=== PATIENT | female | born 1970 | race Caucasian/White ===

== ENCOUNTER → 2017-11-02 15:40 | Outpatient (CLI) | payer MEDICAID, SELFPAY ==
--- NOTE | 2017-11-02 15:47 | MM_ITS ---
. MM Dig screening mamm BI w/CAD . ORDERING PHYSICIAN : [facility] PATIENT AGE: 46 years GENDER: Female INDICATION: No new complaints. No hormones. Noncontributory family history COMPARISON: No previous study. Baseline mammogram. TECHNIQUE: Standard CC and MLO images were obtained. R2 CAD reviewed. FINDINGS: Moderately dense breast laterally fairly diffuse scattered fibrolinear elements RIGHT BREAST:No areas of significant concern. Areas of cc view dissipates on MLO view. Follow-up in one year adequate on right. No new areas of concern LEFT BREAST:There are 2 MLO views of the left breast which are quite helpful. On the repeat MLO view the density superior left breast seems to dissipate out & is less concerning. Nonetheless this a noted asymmetry and is is highlighted by CAD... This area would benefit from additional views:. Suggest Cc, 90 degrees and MLO spot views to further evaluate.. If density here would persist then ultrasound may be beneficial. I tend to Favor this likely summation shadow and should dissipate on these additional views IMPRESSION: ...... Left breast. Asymmetric area of density-most likely summation shadow on this baseline mammogram, but warrants spot views to further evaluate & better establish baseline. . Right breast is stable: follow-up mammogram 1 year on right BI-RADS Category: 0 Need Additional Imaging Evaluaiton. RECOMMENDED FOLLOW-UP: IMM - IMMEDIATE FOLLOW-UP RECOMMENDED Spot views left breast as above (A letter has been sent to the patient regarding results of the study.)
== END ==
PROVIDERS: Family Provider Family Medicine; PCP Family Medicine; Visit Provider Nurse Practitioner Obstetrics & Gynecology
DX: Z12.31 Encounter for screening mammogram for malignant neoplasm of breast (principal)
CPT/HCPCS: 77067

== ENCOUNTER → 2017-11-19 14:59 | Outpatient (CLI) | payer MEDICAID, SELFPAY ==
--- NOTE | 2017-11-19 15:03 | MM_ITS ---
MM Dig mamm DX unilat LT CAD CAD Screening ORDERING PHYSICIAN : [facility] PATIENT AGE: 46 years GENDER: Female COMPARISON: Previous mammograms: 20 INDICATION: Asymmetric densities upper quadrant left breast. Also minimal nodularity elsewhere left breast TECHNIQUE: Standard CC and MLO images were obtained. R2 CAD reviewed. FINDINGS:LEFT BREAST: No prominent findings . Suggestion minimal nodularity. Central left breast on cc view. Likely underlying small cyst. Subsequent Ultrasound support such as well. Another area of relative density upper-outer quadrant left breast was seen on one view but it dissipates on the other.. Subsequent Ultrasound showed no mass nor architectural distortion here. A suggest 6-7 month follow-up with attention upper-outer quadrant left breast ==== ULTRASOUND LEFT BREAST including AXILLARY SURVEY Scattered small cysts. No dominant mass nor architectural distortion is seen at the upper outer quadrant left breast .. Axial unremarkable. A few small Axillary lymph nodes. IMPRESSION: . 1. Left breast Spot views decreased concern regarding significant density. 2. Left breast Ultrasound demonstrates scattered small cyst which likely account for some minimal nodularity on recent mammograms. Suggest follow-up left mammogram 6-7 months to support stable baseline character. BI-RADS Category: 3 Benign Finding Short Term Follow-up RECOMMENDED FOLLOW-UP: 6M -7 MONTH FOLLOW-UP (A letter has been sent to the patient regarding results of the study.) .
--- NOTE | 2017-11-19 15:46 | US_ITS ---
MM Dig mamm DX unilat LT CAD CAD Screening ORDERING PHYSICIAN : [facility] PATIENT AGE: 46 years GENDER: Female COMPARISON: Previous mammograms: 11/02/2017 INDICATION: Asymmetric densities upper quadrant left breast. Also minimal nodularity elsewhere left breast TECHNIQUE: 1 Standard CC and MLO images were obtained. R2 CAD reviewed. 2. Ultrasound survey entire left breast including axillary survey ========= . DIAGNOSTIC: LEFT BREAST: WITH SPOT VIEWS No prominent findings. Suggestion minimal nodularity at Central left breast on cc view. Likely underlying small cyst. Subsequent Ultrasound support such as well. Another area of relative density upper-outer quadrant left breast was seen on one view but it dissipates on the other.. Subsequent Ultrasound showed no mass nor architectural distortion here. A suggest 6-7 month follow-up with attention upper-outer quadrant left breast ==== ULTRASOUND LEFT BREAST including AXILLARY SURVEY Scattered small cysts. No dominant mass nor architectural distortion is seen at the upper outer quadrant left breast .. Axial unremarkable. A few small Axillary lymph nodes. IMPRESSION: . 1. Left breast Spot views decreased concern regarding significant density. 2. Left breast Ultrasound demonstrates scattered small cyst which likely account for some minimal nodularity on recent mammograms. Suggest follow-up left mammogram 6-7 months to support stable baseline character. BI-RADS Category: 3 Benign Finding Short Term Follow-up RECOMMENDED FOLLOW-UP: 6M -7 MONTH FOLLOW-UP (A letter has been sent to the patient regarding results of the study.)
== END ==
PROVIDERS: Family Provider Family Medicine; PCP Family Medicine; Visit Provider Nurse Practitioner Obstetrics & Gynecology
DX: R92.8 Other abnormal and inconclusive findings on diagnostic imaging of breast (principal)
CPT/HCPCS: 76641; 77065

== ENCOUNTER → 2018-05-19 14:10 | Outpatient (CLI) | payer MEDICAID, SELFPAY ==
--- NOTE | 2018-05-19 14:13 | MM_ITS ---
MM Dig mamm DX unilat LT CAD Ordering Physician: Brittany Jordan Patient Age: 47 years Female COMPARISON: October 2017 baseline exam as well as a left mammogram from November 2017 INDICATION: . Follow-up asymmetric density [ TECHNIQUE: Cc, axillary cc and two MLO views.+ FINDINGS: Areas of asymmetric density seen on previous on 2018 studies are less evident today.. No significant new findings. Areas of apparent fibroglandular density seen previously remain stable. No new areas of significant concern Specifically an area of density superior left breast is significantly less evident today and dissipates on the combination of views. No new areas of concern. Bilateral follow-up in 6 months/October 2018 recommended to resume annual scheduled. IMPRESSION: . Stable left mammogram. Stable 6 month follow-up study Left breast Patient may resume routine follow-up protocol. BI-RADS Category: 1 Negative RECOMMENDED FOLLOW-UP: 6M 6 MONTH FOLLOW-UP May Resuming her annual screening schedule A letter has been sent to the patient regarding results of the study.)
== END ==
PROVIDERS: PCP Family Medicine; Visit Provider Nurse Practitioner Family
DX: R92.8 Other abnormal and inconclusive findings on diagnostic imaging of breast (principal)
CPT/HCPCS: 77065

== ENCOUNTER → 2019-01-25 16:36 | Outpatient (CLI) | payer MEDICAID, SELFPAY ==
--- NOTE | 2019-01-25 | MM_ITS ---
PROCEDURE: MM DIG SCREENING MAMM BI W/CAD CLINICAL INDICATION: Routine screening mammogram. No hormones. No new complaints. Noncontributory family history. COMPARISON: [facility] MM Dig screening mamm BI w/CAD from 11/02/2017 DXLT MM Dig mamm DX unilat LT CAD from 11/19/2017 DXLT MM Dig mamm DX unilat LT CAD from 05/19/2018 TECHNIQUE: Standard CC and MLO images were obtained. R2 CAD reviewed. FINDINGS: . [id number] residual fibroglandular elements in both breasts. No dominant or suspicious mass. No suspicious calcifications either breast. There has been overall slight decreased density of the fibroglandular elements both breast since even 2018 mammogram Right breast.: No significant new findings Left breast. Previous area of density superior left breast is less evident today than october 2017 exam IMPRESSION: Stable mammogram. No new areas of significant concern Bilateral follow-up 1 year recommended BI-RAD Category: 1 Negative FOLLOW-UP: 1YR 1 Year Follow-up (A letter has been sent to the patient regarding results of the study.) Dictated by: Duarte Harrison MD 01/30/2019 12:13 Signed by: <Electronically signed by Duarte Harrison MD in [place]> 01/30/2019 12:14
== END ==
PROVIDERS: PCP Family Medicine; Visit Provider Nurse Practitioner Obstetrics & Gynecology
DX: Z12.31 Encounter for screening mammogram for malignant neoplasm of breast (principal)
CPT/HCPCS: 77067

== ENCOUNTER 2019-09-21 09:01 | Emergency (ER) | payer OTHER, SELFPAY ==
--- NOTE | 2019-09-21 09:18 | HMH.EDUTC ---
[facility] [place] Clinical Impression: UTI (urinary tract infection) Qualifiers: Urinary tract infection type: site unspecified Hematuria presence: with hematuria Qualified Code(s): N39.0 - Urinary tract infection, site not specified Disposition: Home, Self-Care Condition on Discharge: Good Instructions: Urinary Tract Infection, DI for Urinary Tract Infection (UTI) Additional Instructions: Drink plenty of fluids. Take tylenol or ibuprofen for pain or fever. Take the medications as directed. Follow up with your regular doctor. GO TO THE ER FOR ANY WORSENING SYMPTOMS The pyridium will make your urine turn orange, this is an expected side effect. It will stain your clothes if it comes into contact with them. Prescriptions: Ondansetron [Zofran 4mg ODT] 4 mg PO Q8HP PRN #10 tab.rapdis PRN Reason: Nausea Transmission Status: Received by [id number] Sulfamethoxazole/Trimethoprim [Bactrim DS tablet] 1 each PO BID 7 Days #14 tab Transmission Status: Received by [id number] Phenazopyridine HCl [Pyridium 200mg Tablet] 200 pow PO TID #6 tab Transmission Status: Received by [id number] Referrals: Tom Evans MD [Primary Care Provider] - Forms: Work/School Release Time of Disposition: 09:31 Medical Decision Making - Medical Records Medical records reviewed: No: I reviewed the patient's medical records. - Graham Inquiry Pt receiving controlled substance: No Vital Signs: 09/21/19 09:20 09/21/19 09:39 Temperature 98.5 F 98.5 F Temperature Source Oral Oral Pulse Rate 90 Pulse Rate [Right Brachial] 90 Respiratory Rate 20 20 Blood Pressure 123/91 H Blood Pressure [Right Arm] 123/91 H Blood Pressure Mean [Right Arm] 101 Blood Pressure Source Automatic Cuff Blood Pressure Source [Right Arm] Automatic Cuff Blood Pressure Position Sitting Blood Pressure Position [Right Arm] Sitting 02 Sat by Pulse Oximetry 100 Oxygen Delivery Method Room Air Room Air - Lab Data Lab results reviewed: Yes: I reviewed the patient's lab results. Lab Results 09/21/19 09:17: Urine Color Yellow, Urine Appearance Clear, Urine pH 6.0, Ur Specific [place] 1.020, Urine Protein Trace, Urine Glucose (UA) Negative, Urine Ketones Negative, Urine Blood 1+, Urine Nitrate Negative, Urine Bilirubin Negative, Urine Urobilinogen 0.2, Ur Leukocyte Esterase Negative Orders (Tests/Meds): ORDERS Category Date Time Status Urine Culture Stat Micro 09/21/19 09:30 Re[place] [facility] [place] - General Stated complaint: possible UTI Time Seen by Provider: 09/21/19 09:18 - History of Present Illness Provider Complaint: She c/o 3 days of lower abdominal pain, low back pain and burning while she urinates. She has also noted some blood in her urine at times. She thinks that she is getting a UTI. In the past she has had similar symptoms with a UTI. - Related Data Previous Rx's Medication Instructions Recorded Ondansetron [Zofran 4mg ODT] 4 mg PO Q8HP PRN #10 tab.rapdis 09/21/19 Phenazopyridine HCl [Pyridium 200 pow PO TID #6 tab 09/21/19 200mg Tablet] Sulfamethoxazole/Trimethoprim 1 each PO BID 7 Days #14 tab 09/21/19 [Bactrim DS tablet] Allergies Allergy/AdvReac Type Severity Reaction Status Date / Time No Known Allergies Allergy Verified 05/07/19 16:21 [facility] History - Hepatitis A Screen Attestation statement:: This patient has been screened for Hepatitis A risk factors. I have reviewed the patient's past medical history: Yes Other Surgeries: Yes: No Previous Surgery, , Tubal Ligation Amputation: No Fractures: No - Social History Smoking Status: Never smoker Alcohol Intake: never Occupational Status: employed Family Hx:: Cancer ROS Obtained: Yes All systems reviewed & no additional complaints - Constitutional Constitutional: Denies chills, Denies fever(s), Reports poor appetite, Reports malaise - Gastrointestinal Gastrointesting
[2019-09-21 09:20] VITALS: BP 123/91; PULSE 90; RESP 20; TEMP 36.9; O2SAT 100
[2019-09-21 09:25] LABS: Apearance,Urine Clear (Clear); Color,Urine Yellow (Yellow); Glucose,Urine (UA) Negative (Negative); Ketones,Urine Negative (Negative); Protein,Urine Trace (Negative)
[2019-09-21 09:26] LABS: Bilirubin,Urine Negative (Negative); Blood, Urine 1+ (Negative); UTC Leukocyte Esterase,Urine Negative (Negative); UTC Nitrate,Urine Negative (Negative); Urobilinogen,Urine 0.2 EU/dl (0.2)
[2019-09-21 09:39] VITALS: BP 123/91; PULSE 90; RESP 20; TEMP 36.9; O2SAT 100
== END 2019-09-21 09:41 | disposition home or self-care (01) ==
PROVIDERS: Emergency Provider Nurse Practitioner Family; PCP Family Medicine
DX: N30.00 Acute cystitis without hematuria (principal)
CPT/HCPCS: 81003; 87086; 99201

== ENCOUNTER → 2020-05-15 15:08 | Outpatient (CLI) | payer OTHER, SELFPAY ==
--- NOTE | 2020-05-15 15:08 | US_ITS ---
PROCEDURE: US TRANSVAGINAL CLINICAL INDICATION: Abnormal menses COMPARISON: No exams were available for comparison FINDINGS: UTERUS: 9cm x 5cmx 4cm with a combined endometrial thickness of 6.1mm LEFT OVARY: 7bde3phn4.6cm with a volume of 6.3ml. RIGHT OVARY: [id number] with a volume of 4.9ml. Heterogeneous appearance of the uterus suggesting adenomyosis. There is bilateral ovarian blood flow. There is a simple 2 cm cyst of the right ovary. No cul-de-sac fluid. IMPRESSION: Suspected adenomyosis of the uterus Dictated by: Javid Ponce MD 05/15/2020 19:26 Javid Ponce MD in [place] 05/15/2020 19:26
== END ==
PROVIDERS: PCP Family Medicine; Visit Provider Obstetrics & Gynecology
DX: N92.6 Irregular menstruation, unspecified (principal)
CPT/HCPCS: 76830

== ENCOUNTER 2020-07-18 15:00 | Outpatient (RCR) | payer OTHER, SELFPAY ==
--- NOTE | 2020-05-06 16:48 | HMH.PTOPEV ---
PT Outpatient Evaluation Rehab PT Outpatient Evaluation Start: 05/06/20 16:23 Freq: Status: Active Protocol: Document 05/06/20 16:24 NADER (Rec: 05/06/20 16:48 NADER [id number]) Electronically Signed By Jr Lau, PT 05/06/20 16:24 Outpatient Therapy Subjective History Subjective History Patient is a 49 year old female presenting to outpatient PT with reports of sub-acute L upper trap, ACJ and pec minor pain starting approximatley 2 months ago. No specific mechanism of injury to report. No recent imaging to report. No comorbidities to report. Chief Complaint Pain Symptom Type Ache,Dull Symptoms Relieved By Rest/Positioning Symptoms Aggravated By Physical Activity,Lifting Prior Functional Limitations None Current Functional Limitations Reaching,Lifting,Housework, Dressing,Driving,Sleeping, Recreation Activity Symptom Description Intermittent Level of pain today (0-10) 2 Pain scale - at its best (0-10) 0 Pain scale - at its worst (0-10) 6 Cervical Eval Palpation Cervical Muscles L Upper Trapezius Cervical/Thoracic Palpation Findings Tenderness Posture Head/C-Spine Posture Sitting Position Neutral Position Head/C-Spine Posture Standing Position Neutral Position Flexibility Deficits Upper Trapezius Muscle Length (L) Mild Tightness Levaetor Scapulae Muscle Length (L) Mild Tightness Pectoralis Minor Muscle Length (L) Mild Tightness Passive Joint Mobility Cervical PIVM WNL: R OA L OA R AA L AA R C2/3 L C2/3 R C3/4 L C3/4 R C4/5 L C4/5 R C5/6 L C5/6 R C6/7 L C6/7 R C7/T1 L C7/T1 AROM Cervical Spine Extension Active Range of 60 Motion (degrees) Cervical Spine Flexion Active Range of 55 Motion (degrees) Cervical Spine Right Lateral Flexion 38 Active Range of Motion (degrees) Cervical Spine Left Lateral Flexion 45 Active Range of Motion (degrees) Cervical S
== END 2020-07-18 15:05 | disposition home or self-care (01) ==
LOC: PT 15:00
PROVIDERS: PCP Family Medicine; Visit Provider Family Medicine
DX: M54.2 Cervicalgia (principal); M25.512 Pain in left shoulder
CPT/HCPCS: 20560; 20561; 97010; 97014; 97035; 97110; 97140; 97163; 97164; G0283

== ENCOUNTER 2020-09-07 13:22 | Inpatient (IN) | payer OTHER, SELFPAY ==
[2020-09-07] VITALS (9 sets, daily range): BP systolic 102–134; BP diastolic 58–92; PULSE 61–91; RESP 14–75; TEMP 36.8–38.8; O2SAT 95–100; BMI 20.9; BMI 21.8
[2020-09-07 14:08] LABS: Apearance,Urine Clear (Clear); Color,Urine Dark Yellow (Yellow); PH,Urine 5.5 (5.0-8.5)
[2020-09-07 14:09] LABS: Bilirubin,Urine Negative (Negative); Blood, Urine 2+ (Negative); Glucose,Urine (UA) Negative (Negative); Ketones,Urine 1+ (Negative); Protein,Urine 3+ (Negative); Urobilinogen,Urine 1 EU/dl (0.2)
[2020-09-07 14:10] LABS: UTC Leukocyte Esterase,Urine 1+ (Negative); UTC Nitrate,Urine Negative (Negative)
--- NOTE | 2020-09-07 14:20 | HMH.EDGENADL ---
ED Disposition Clinical Impression: Pyelonephritis Disposition: Admitted as Observation Condition on Discharge: Fair Referrals: Tom Evans MD [Primary Care Provider] - Time of Disposition: 17:35 - Critical Care Critical Care Time: No Attestation: On 09/07/20, the high probability of a clinically significant, sudden or life threatening deterioration of the following system(s) required my full and direct attention, intervention and personal management. The time I documented below is in addition to time spent performing reported procedures but includes the following listed in this critical care notation. Medical Decision Making - Graham Inquiry Pt receiving controlled substance: No Vital Signs: 09/07/20 13:50 09/07/20 14:30 09/07/20 15:19 Temperature 101.8 F H 101.1 F H 99.7 F H Temperature Source Oral Oral Oral Pulse Rate 71 Pulse Rate [Right] 91 H 84 Respiratory Rate 14 17 16 Blood Pressure 119/65 Blood Pressure [Right Arm] 116/68 127/67 Blood Pressure Mean 87 Blood Pressure Mean [Right Arm] 84 87 Blood Pressure Source [Right Arm] Automatic Cuff Automatic Cuff Blood Pressure Position [Right Arm] Sitting 02 Sat by Pulse Oximetry 100 99 97 Oxygen Delivery Method Room Air Room Air Room Air 09/07/20 15:30 09/07/20 16:01 09/07/20 16:30 Temperature 98.2 F Temperature Source Oral Pulse Rate 70 68 Pulse Rate [Right] Respiratory Rate 16 Blood Pressure 109/64 L 105/58 L 107/60 L Blood Pressure [Right Arm] Blood Pressure Mean 79 71 73 Blood Pressure Mean [Right Arm] Blood Pressure Source [Right Arm] Blood Pressure Position [Right Arm] 02 Sat by Pulse Oximetry 98 98 Oxygen Delivery Method Room Air Room Air - Lab Data Lab results reviewed: Yes: I reviewed the patient's lab results. Lab Results 09/07/20 13:50: Chlamy pneumoniae PCR Not detected, Adenovirus (PCR) Not detected, B. pertussis DNA (PCR) Not detected, Coronavirus OC43 (PCR) Not detected, Coronavirus HKU1 (PCR) Not detected, Coronavirus 229E (PCR) Not detected, SARS-CoV-2 (PCR) Not detected, Coronavirus NL63 (PCR) Not detected, Human Metapneumovir PCR Not detected, Influenza A (H1) PCR Not detected, Influ A (H1N1/09) PCR Not detected, Influenza A (H3) PCR Not detected, Influenza Type A (PCR) Not detected, Influenza Type B (PCR) Not detected, M. pneumoniae (PCR) Not detected, Parainfluenza 1 (PCR) Not detected, Parainfluenza 2 (PCR) Not detected, Parainfluenza 3 (PCR) Not detected, Parainfluenza 4 (PCR) Not detected, RSV (PCR) Not detected, Entero/Rhino (PCR) Not detected 09/07/20 14:00: Urine HCG, Qual Negative 09/07/20 14:04: Urine Color Dark yellow, Urine Appearance Clear, Urine pH 5.5, Ur Specific [place] 1.020, Urine Protein 3+, Urine Glucose (UA) Negative, Urine Ketones 1+, Urine Blood 2+, Urine Nitrate Negative, Urine Bilirubin Negative, Urine Urobilinogen 1, Ur Leukocyte Esterase 1+ A 09/07/20 14:45: WBC 15.6 H, RBC 3.79 L, Hgb 12.1 L, Hct 35.8 L, MCV 94.4, MCH 32.0 H, MCHC 33.9, RDW 13.2, Plt Count 310, MPV 7.5, Neut % (Auto) 89.0 H, Lymph % (Auto) 5.5 L, [place] % (Auto) 5.2, Eos % (Auto) 0.1, Baso % (Auto) 0.2, Neut # (Auto) 13.9 H, Lymph # (Auto) 0.9, [place] # (Auto) 0.8, Eos # (Auto) 0.0, Baso # (Auto) 0.0, Total Counted 100, Neutrophils % (Manual) 87 H, Lymphocytes % (Manual) 7 L, Monocytes % (Manual) 6, Platelet Estimate Normal, RBC Morphology Normal 09/07/20 14:45: Sodium 132 L, Potassium 3.4 L, Chloride 98, Carbon Dioxide 25, Anion Gap 12.4, BUN 10, Creatinine 0.80, Estimated Creat Clear 81, Estimated GFR 77, Est GFR ( Amer) 93, Glucose 103 H, Calcium 9.1, Total Bilirubin 0.6, AST 43 H, ALT 60, Alkaline Phosphatase 146 H, Total Protein 7.1, Albumin 3.8, Globulin 3.3 H, Albumin/Globulin Ratio 1.2 09/07/20 14:59: Lactate 1.1 Result diagrams: 09/07/20 14:45 09/07/20 14:45 Orders (Tests/Meds): ED MEDICATIONS Generic Name Dose Route Start Last Admin Trade Name Freq PRN Reason Stop Dose Admin Ceftriaxo
--- NOTE | 2020-09-07 14:23 | CT_ITS ---
PROCEDURE: CT ABDOMEN PELVIS W CON CLINICAL INDICATION: RLQ pain, fever COMPARISON: No exams were available for comparison TECHNIQUE: IV Contrast: 75ML OPTIRAY 350 Oral Contrast none given Axial images obtained with sagittal and coronal reformats. All CT scans at the facility use one or more dose reduction, viz: automated exposure control, ma/kV adjustment per patient size (including targeted exams where dose is matched to indication, i.e. head), or iterative reconstruction technique. FINDINGS: Lower thorax: There is minimal atelectasis or postinflammatory scarring left posterior gutter, there is no pleural fluid. There is a calcified granuloma posterior basilar segment right lower lobe. ABDOMEN: Liver: No masses or biliary dilatation. Gallbladder: Nondistended. No radio opaque stones. Pancreas: No masses or peripancreatic fluid collections. Spleen: unremarkable Adrenals: unremarkable Kidneys/ureters: Normal in size and the left kidney shows prompt function and appears normal. There is a diffuse somewhat edematous appearance to the calices of the right collecting system and a somewhat poorly defined renal pelvis. There are no calculi in either kidney and no ureteral calculi. The overall appearance of the right kidney when compared to the normal function left kidney suggest acute pyelonephritis without obstruction. ABDOMEN & PELVIS: Stomach bowel: Nondistended. No obvious mass or thickening. There is a mildly dilated fluid-filled loops of proximal small bowel, the distal small bowel appears normal. The appendix is normal and partially air-filled. There is moderate scattered stool and gas seen throughout the colon. Peritoneum: No abnormal fluid collections. No obvious inflammatory changes. No free air. Lymph nodes: No enlarged lymph nodes apparent. Vasculature: No evidence of abdominal aortic aneurysm. No retroperitoneal hemorrhage evident. Bones: No acute fracture PELVIS: Reproductive: The uterus is normal in size and in the midline Bladder: The urinary bladder is partially decompressed, there is a small to moderate amount of fluid in the cul-de-sac. Appendix: Unremarkable. No distention or periappendiceal phlegmonous change. IMPRESSION: 1. Diffusely edematous appearance of the collecting system and cortical medullary junction of the right kidney when compared to the normal appearing left kidney on suspect acute pyelonephritis. There is no obstructive uropathy of either kidney. 2. Mildly dilated fluid-filled loops of small bowel proximally mild degree enteritis is possible versus mild ileus secondary to inflammatory changes of the right kidney 3. Moderate amount of fluid in the cul-de-sac more than physiologic again likely reaction to the suspected right-sided pyelonephritis Dictated by: Dr. Star Segovia MD 09/07/2020 15:50 Dr. Star Segovia MD in [place] 09/07/2020 15:50
[2020-09-07 14:57] LABS: Basophils % 0.2 % (0.1-2.0); Eosinophils % 0.1 % (0.1-12.0); Hematocrit 35.8 % (37.0-47.0); Hemoglobin 12.1 g/dL (12.2-16.2); Lymphocytes # 0.9 K/mm3 (0.7-4.5); Lymphocytes % 5.5 % (10-50); Mean Corpuscular HGB Conc 33.9 g/dL (31.8-35.4); Mean Corpuscular Volume 94.4 fl (81-99); Mean Platelet Volume 7.5 fl (7.4-10.4); Monocytes # 0.8 K/mm3 (0.1-1.0); Monocytes % 5.2 % (1.7-9.3); Neutrophils # 13.9 K/mm3 (1.8-7.8); Platelet Count 310 K/mm3 (142-424); Red Blood Count 3.79 M/mm3 (4.20-5.40); Red Cell Distribution Width 13.2 % (11.5-17.5); White Blood Count 15.6 K/mm3 (4.8-10.8)
[2020-09-07 15:00] LABS: Chloride 98 mmol/L (98-107); MANUAL DIFFERENTIAL MANUAL DIFFERENTIAL (MANUAL DIFF)
[2020-09-07 15:01] LABS: Potassium 3.4 mmoL/L (3.5-5.1); Sodium 132 mmol/L (136-145)
[2020-09-07 15:03] LABS: Alanine Aminotransferase 60 U/L (12-78); Aspartate Amino Transferase 43 U/L (14-36); Bilirubin,Total 0.6 mg/dl (0.2-1.3); Blood Urea Nitrogen 10 mg/dl (7-17); Creatinine Clearance Estimated 81 mL/min (50-200); Estimated Glomerular Filt Rate 77 ml/min (>60); GFR (African American) 93 ML/MIN (>60)
[2020-09-07 15:04] LABS: Albumin Level 3.8 g/dl (3.5-5.0); Albumin/Globulin Ratio 1.2 (1.1-1.8); Alkaline Phosphatase 146 U/L (38-126); Anion Gap 12.4 mEq/L (5-15); Calcium 9.1 mg/dl (8.4-10.2); Carbon Dioxide 25 mmol/L (22.0-30.0); Globulin 3.3 g/dL (1.3-3.2); Glucose 103 mg/dl (74-100); Total Protein,Serum 7.1 g/dl (6.3-8.2)
[2020-09-07 15:10] LABS: Adenovirus,PCR Not Detected (NotDetected); Bordetella Pertussis Not Detected (NotDetected); Chlamydophila Pneumoniae, PCR Not Detected (NotDetected); Coronavirus 19, PCR Not Detected (NotDetected); Coronavirus 229E Not Detected (NotDetected); Coronavirus NL63 Not Detected (NotDetected); Coronavirus OC43 Not Detected (NotDetected); Coronovirus HKU1,PCR Not Detected (NotDetected); Human Metapneumovirus Not Detected (NotDetected); Influenza A, PCR Not Detected (NotDetected); Influenza AH1, 2009 Not Detected (NotDetected); Influenza AH1, PCR Not Detected (NotDetected); Influenza AH3,PCR Not Detected (NotDetected); Influenza B, PCR Not Detected (NotDetected); Mycoplasma Pneumoniae, PCR Not Detected (NotDetected); Parainfluenza 1, PCR Not Detected (NotDetected); Parainfluenza 2, PCR Not Detected (NotDetected); Parainfluenza 3, PCR Not Detected (NotDetected); Parainfluenza 4, PCR Not Detected (NotDetected); Respiratory Syncytial Virus Not Detected (NotDetected); Rhinovirus/Enterovirus Not Detected (NotDetected)
[2020-09-07 15:15] LABS: Lactic Acid 1.1 mmol/L (0.7-2.1)
[2020-09-07 15:16] LABS: Lymphocytes % 7 % (10-50); Monocytes % 6 % (2-9); Neutrophils % 87 % (42-76); Platelet Estimate Normal; RBC Morphology Normal; Total Cells Counted 100
[2020-09-07 15:43] LABS: Urine Pregnancy, HCG Qual. Negative (Negative)
--- NOTE | 2020-09-07 17:09 | PC.NURSE ---
speaking with Zach at this time.
--- NOTE | 2020-09-07 17:36 | PC.NURSE ---
BED REQUEST FROM ED, ROOM 207, PER Kari MCNEIL RN. ADMISSION CALLED PER Victoriano MONSALVE [employer]RIMP TRAWLER
--- NOTE | 2020-09-07 18:04 | PC.NURSE ---
Called and gave report to Trevor Houston RN on 2nd floor.
[2020-09-08 04:00] VITALS: BP 101/53; PULSE 80; RESP 20; TEMP 37.8; O2SAT 96
--- NOTE | 2020-09-08 04:47 | PC.NURSE ---
pain c/o pain 01/21 along with nausea administered zofran, Ibuprofen & morphine resulting in decreased pain and able to rest. Voided x 2. Shows no s/s of acute distress at this time, call light in reach, bed at lowest level for safety, will continue to monitor.
[2020-09-08 05:00] VITALS: BMI 23.3
[2020-09-08 07:14] LABS: Basophils % 0.1 % (0.1-2.0); Eosinophils % 0.3 % (0.1-12.0); Hematocrit 30.1 % (37.0-47.0); Lymphocytes # 0.7 K/mm3 (0.7-4.5); Lymphocytes % 7.1 % (10-50); Mean Corpuscular HGB Conc 33.7 g/dL (31.8-35.4); Mean Corpuscular Hemoglobin 32.3 pg (27.0-31.2); Mean Corpuscular Volume 95.8 fl (81-99); Mean Platelet Volume 7.6 fl (7.4-10.4); Monocytes # 0.4 K/mm3 (0.1-1.0); Monocytes % 3.9 % (1.7-9.3); Neutrophils # 8.3 K/mm3 (1.8-7.8); Neutrophils % 88.6 % (37.0-80.0); Platelet Count 261 K/mm3 (142-424); Red Blood Count 3.14 M/mm3 (4.20-5.40); Red Cell Distribution Width 13.3 % (11.5-17.5); White Blood Count 9.3 K/mm3 (4.8-10.8)
--- NOTE | 2020-09-08 07:17 | PC.NURSE ---
DR LAZARO MADE AWARE OF WEIGHT GAIN BY THIS NURSE, FLUID INFUSION RATE DECREASED PER MD ORDERS TO 125 ML/HR.
[2020-09-08 07:19] LABS: MANUAL DIFFERENTIAL MANUAL DIFFERENTIAL (MANUAL DIFF)
[2020-09-08 07:22] LABS: Anion Gap 10.5 mEq/L (5-15); Blood Urea Nitrogen 9 mg/dl (7-17); Calcium 7.7 mg/dl (8.4-10.2); Carbon Dioxide 19 mmol/L (22.0-30.0); Chloride 105 mmol/L (98-107); Creatinine Clearance Estimated 103 mL/min (50-200); Estimated Glomerular Filt Rate 90 ml/min (>60); GFR (African American) 109 ML/MIN (>60); Glucose 87 mg/dl (74-100); Potassium 3.5 mmoL/L (3.5-5.1); Sodium 131 mmol/L (136-145)
[2020-09-08 07:39] LABS: Procalcitonin 2.42 ng/mL (0.0-2.0)
--- NOTE | 2020-09-08 07:48 | HMH.HP ---
*Admission Date: 09/07/20 *Chief complaint: Back pain, fever, malaise *History of present illness: 49-year-old female presented to the emergency department with right-sided back pain that had begun 5 days prior along with fevers that had begun 4 days prior. Patient assumed she had Covid and had avoided seeking medical care. However when she developed additional symptoms of weakness, nausea, headache and lightheadedness patient ultimately came to the emergency department. Patient underwent evaluation with findings consistent with a right pyelonephritis. Patient did have a urinary tract infection in June of this year that grew E. coli but reports complete resolution of symptoms since that time. Other than having a hot urine patient denies dysuria, urinary urgency or frequency, hematuria. Patient was started on high flow IV fluids, given Rocephin initially in the emergency department with Invanz started later in the evening. Overnight the patient has not had any problems other than nausea associated with her pyelonephritis. She does continue to have low-grade fevers. [facility] History I have reviewed the patient's past medical history: Yes Medical History: Reports:: Urinary Tract Infection *Have you ever received a pneumonia vaccine?: No *Have you received a flu vaccine this season?: Yes Other Surgeries: Yes: No Previous Surgery, , Tubal Ligation Amputation: No Fractures: No - *Social History Last grade of school completed: GED Smoking Status: Former smoker Alcohol Intake: never Substance Use Type: denies use *Occupational Status:: employed Housing: house *Travel in the last 8 weeks: None Family Hx:: Heart Attack, Hyperlipidemia, Hypertension Review of Systems - Constitutional Reports body ache(s), Reports chills, Reports lack of energy, Denies anorexia - Eyes Denies itchy eyes - ENT Denies difficulty swallowing - *Cardiovascular Denies chest pain, Denies chest pain at rest, Denies chest pain with activity - *Respiratory Denies change in phlegm color, Denies chest congestion, Denies cough - *Gastrointestinal Denies abdominal pain, Denies belching, Denies bloating - *Genitourinary Reports abnormal periods, Denies abnormal vaginal bleeding, Denies absent period - *Musculoskeletal Denies abnormal walking, Denies joint pain, Denies decreased muscle mass - Integumentary/Breasts Denies bleeding lesions - *Neurologic Denies abnormal walking, Denies burning sensations - Psychiatric Denies abnormal sleep pattern Meds Home Medications Medication Instructions Recorded Confirmed Type No Known Home Medications 05/22/20 09/07/20 History Allergies Allergy/AdvReac Type Severity Reaction Status Date / Time No Known Allergies Allergy Verified 05/23/20 15:29 Exam Vital signs and Labs for Last 24 Hours: Temp Pulse Resp BP Pulse Ox 100.0 F H 80 20 101/53 L 96 09/08/20 04:00 09/08/20 04:00 09/08/20 04:00 09/08/20 04:00 09/08/20 04:00 Laboratory Results - last 24 hr 09/07/20 13:50: Chlamy pneumoniae PCR Not detected, Adenovirus (PCR) Not detected, B. pertussis DNA (PCR) Not detected, Coronavirus OC43 (PCR) Not detected, Coronavirus HKU1 (PCR) Not detected, Coronavirus 229E (PCR) Not detected, SARS-CoV-2 (PCR) Not detected, Coronavirus NL63 (PCR) Not detected, Human Metapneumovir PCR Not detected, Influenza A (H1) PCR Not detected, Influ A (H1N1/09) PCR Not detected, Influenza A (H3) PCR Not detected, Influenza Type A (PCR) Not detected, Influenza Type B (PCR) Not detected, M. pneumoniae (PCR) Not detected, Parainfluenza 1 (PCR) Not detected, Parainfluenza 2 (PCR) Not detected, Parainfluenza 3 (PCR) Not detected, Parainfluenza 4 (PCR) Not detected, RSV (PCR) Not detected, Entero/Rhino (PCR) Not detected 09/07/20 14:00: Urine HCG, Qual Negative 09/07/20 14:04: Urine Color Dark yellow, Urine Appearance Clear, Urine pH 5.5, Ur Specific [place] 1.020, Urine Protein 3+, Urine Glucose (UA) Neg
[2020-09-08 07:58] VITALS: BP 99/57; PULSE 68; RESP 17; TEMP 36.8; O2SAT 100
[2020-09-08 08:15] LABS: Lymphocytes % 15 % (10-50); Monocytes % 4 % (2-9); Neutrophils % 81 % (42-76); Platelet Estimate Normal; RBC Morphology Normal; Total Cells Counted 100
[2020-09-08 08:24] LABS: Hemoglobin 10.2 g/dL (12.2-16.2)
--- NOTE | 2020-09-08 13:10 | P.CONPHA_ITS ---
[facility] Pharmacy VTE Monitoring - Patient Demographics Admission date: 09/08/20 Report Date: 09/08/20 Time: 13:10 Allergies/Adverse Reactions: Patient Allergies No Known Allergies Allergy (Verified 05/23/20 15:29) Height: 1.68 m Weight: 65.969 kg Patient Problems: Current Active Problems Pyelonephritis (Acute) - VTE Risk Labs: VTE Related Lab Results Hgb 10.2 g/dL (12.2-16.2) L D 09/08/20 06:50 Hct 30.1 % (37.0-47.0) L 09/08/20 06:50 Plt Count 261 K/mm3 (142-424) 09/08/20 06:50 BUN 9 mg/dl (7-17) 09/08/20 06:50 Creatinine 0.70 mg/dl (0.52-1.04) 09/08/20 06:50 Estimated Creat Clear 103 mL/min (50-200) 09/08/20 06:50 - Prophylaxis Types of VTE Prophylaxis: TEDS Knee High, IPCS Knee High (JAIDA HOSE ORDERED WELL.) Location of Applied Device: Not Applicable
--- NOTE | 2020-09-08 14:48 | PC.NURSE ---
SHE IS AOX4, ABLE TO MAKE NEEDS KNOWN TO STAFF, SHE HAS AMBULATED IN ROOM TO RESTROOM WITHOUT DIFFICULTY THIS SHIFT, SHE HAS NOT REQUIRED O2 SUPPORT, DID C/O HEADACHE THIS SHIFT AND WAS GIVEN TYLENOL PER AUG, SHE WAS ALSO ADMIN MOTRIN PER HER REQUEST FOR HER HEADACHE, SHE HAS NOT C/O HEADACHE SINCE ADMIN, HE ABD IS SOFT AND TENDER ON PALPATION AND SHE DENIES DIFFICULTY WITH ELIMINATION, PT DOES APPEAR MIDLY EDEMATOUS, 4KG WEIGHT GAIN REPORTED TO DR LAZARO THIS AM DURING ROUNDS AND FLUIDS WERE DECREASED PER MD REQUEST, SHE HAS TOLERATED DIET WELL, NO C/O N/V/D, DENIES CHEST PAIN, NO NEEDS AT THIS TIME, WILL CONTINUE TO MONITOR.
[2020-09-08 15:27] VITALS: BP 124/73; PULSE 62; RESP 18; TEMP 37; O2SAT 98
[2020-09-08 20:00] VITALS: BP 116/91; PULSE 89; RESP 20; TEMP 38.7; O2SAT 94
[2020-09-09 05:00] VITALS: BMI 23.0
[2020-09-09 06:14] VITALS: BP 124/70; PULSE 56; RESP 17; TEMP 36.8; O2SAT 96
[2020-09-09 06:31] LABS: Basophils % 0.4 % (0.1-2.0); Eosinophils # 0.1 K/mm3 (0.0-0.4); Eosinophils % 1.5 % (0.1-12.0); Hematocrit 33.5 % (37.0-47.0); Hemoglobin 11.2 g/dL (12.2-16.2); Lymphocytes # 0.8 K/mm3 (0.7-4.5); Lymphocytes % 8.6 % (10-50); Mean Corpuscular HGB Conc 33.4 g/dL (31.8-35.4); Mean Corpuscular Hemoglobin 32.2 pg (27.0-31.2); Mean Corpuscular Volume 96.5 fl (81-99); Mean Platelet Volume 8.7 fl (7.4-10.4); Monocytes # 0.5 K/mm3 (0.1-1.0); Monocytes % 5.1 % (1.7-9.3); Neutrophils # 7.6 K/mm3 (1.8-7.8); Neutrophils % 84.5 % (37.0-80.0); Platelet Count 312 K/mm3 (142-424); Red Blood Count 3.47 M/mm3 (4.20-5.40); Red Cell Distribution Width 13.5 % (11.5-17.5)
[2020-09-09 07:02] LABS: Procalcitonin 1.96 ng/mL (0.0-2.0)
--- NOTE | 2020-09-09 07:17 | P.PN_ITS ---
Internal Medicine - PN: Subj *Date: 09/09/20 *Time: 07:17 Interval history: Patient has no new complaints. Headache persists and responds intermittently to Tylenol and ibuprofen. She did develop some vaginal bleeding overnight. Patient's last normal menstrual period was a week and a half ago. Exam Vital signs and Labs for Last 24 Hours: Temp Pulse Resp BP Pulse Ox 98.2 F 56 L 17 124/70 96 09/09/20 06:14 09/09/20 06:14 09/09/20 06:14 09/09/20 06:14 09/09/20 06:14 Laboratory Results - last 24 hr 09/08/20 06:50: Sodium 131 L, Potassium 3.5, Chloride 105, Carbon Dioxide 19 L D , Anion Gap 10.5, BUN 9, Creatinine 0.70, Estimated Creat Clear 103, Estimated GFR 90, Est GFR ( Amer) 109, Glucose 87, Calcium 7.7 L D, Procalcitonin 2.42 H 09/08/20 06:50: WBC 9.3 D, RBC 3.14 L, Hgb 10.2 L D, Hct 30.1 L, MCV 95.8, MCH 32.3 H, MCHC 33.7, RDW 13.3, Plt Count 261, MPV 7.6, Neut % (Auto) 88.6 H, Lymph % (Auto) 7.1 L, Chambers % (Auto) 3.9, Eos % (Auto) 0.3, Baso % (Auto) 0.1, Neut # (Auto) 8.3 H, Lymph # (Auto) 0.7, [place] # (Auto) 0.4, Eos # (Auto) 0.0, Baso # (Auto) 0.0, Total Counted 100, Neutrophils % (Manual) 81 H, Lymphocytes % (Manual) 15, Monocytes % (Manual) 4, Platelet Estimate Normal, RBC Morphology Normal I & O for Last 24 hours: Intake & Output 09/06/20 09/07/20 09/08/20 09/09/20 11:59 11:59 11:59 11:59 Intake Total 480 / 480 480 / 480 Balance 480 / 480 480 / 480 Weight 145 lb 7 oz 143 lb 7 oz Microbiology Reports for the Last 24 Hours: Microbiology 09/07/20 14:55 Blood Blood Culture - Preliminary 09/07/20 14:55 Blood Blood Culture - Preliminary Narrative: Patient is in no distress. Mild right CVA tenderness persists. Abdominal tenderness has improved. Abdomen is soft with active bowel sounds. Heart has a regular rate and rhythm. Assessment and Plan (1) Pyelonephritis Status: Acute Category: Medical Code(s): N12 - Tubulo-interstitial nephritis, not specified as acute or chronic - Assessment and plan all Dx Assessment and Plan for all problems:: 1. Continue IV Invanz while awaiting blood and urine cultures 2. Patient is feeling quite edematous and I will stop her IV fluids
[2020-09-09 08:00] VITALS: BP 112/58; PULSE 68; RESP 16; TEMP 36.7; O2SAT 95
[2020-09-09 16:00] VITALS: BP 113/71; PULSE 59; RESP 16; TEMP 36.8; O2SAT 98
--- NOTE | 2020-09-09 17:02 | HMH.DCSUM ---
General - General Admission date:: 09/07/20 Discharge date: 09/09/20 HPI HPI: 49-year-old female presented to the emergency department with right-sided back pain that had begun 5 days prior along with fevers that had begun 4 days prior. Patient assumed she had Covid and had avoided seeking medical care. However when she developed additional symptoms of weakness, nausea, headache and lightheadedness patient ultimately came to the emergency department. Patient underwent evaluation with findings consistent with a right pyelonephritis. Patient did have a urinary tract infection in June of this year that grew E. coli but reports complete resolution of symptoms since that time. Other than having a hot urine patient denies dysuria, urinary urgency or frequency, hematuria. Patient was started on high flow IV fluids, given Rocephin initially in the emergency department with Invanz started later in the evening. Overnight the patient has not had any problems other than nausea associated with her pyelonephritis. She does continue to have low-grade fevers. Hospital Course Hospital Course: Patient was given Rocephin initially in the emergency department for pyelonephritis and then started on Invanz that same day. Patient was given IV Invanz 1 g daily. Patient's white blood cell count came down and at discharge was 9000. Patient's flank pain improved gradually during hospitalization. Patient never developed any significant urinary symptoms. Appetite improved. Patient did have headache and fevers associated with her illness which responded to Tylenol and/or ibuprofen. Patient's urine and blood cultures were growing gram-negative rods. On the day of discharge cultures had not been finalized but patient had been responding to IV Invanz and in June of this year had had an E. coli UTI sensitive to fluoroquinolones and third-generation cephalosporins. After her dose of Invanz on the patient was discharged home. Outpatient antibiotics will be arranged to continue 1 week of antibiotics for gram-negative bacteremia followed by a week of oral antibiotics. Objective Vital signs: Temp Pulse Resp BP Pulse Ox 98.2 F 59 L 16 113/71 98 09/09/20 16:00 09/09/20 16:00 09/09/20 16:00 09/09/20 16:00 09/09/20 16:00 no acute distress - *Routine Respiratory Exam Present: CTA bilaterally - *Routine Cardiovascular Exam Present: RRR - *Routine Abdominal Exam Present: soft, normoactive bowel sounds. Absent: tenderness Results Labs on day of discharge: Labs from last 24 hours 09/09/20 09/09/20 06:03 06:03 WBC 9.0 RBC 3.47 L Hgb 11.2 L Hct 33.5 L MCV 96.5 MCH 32.2 H MCHC 33.4 RDW 13.5 Plt Count 312 MPV 8.7 Neut % (Auto) 84.5 H Lymph % (Auto) 8.6 L [place] % (Auto) 5.1 Eos % (Auto) 1.5 Baso % (Auto) 0.4 Neut # (Auto) 7.6 Lymph # (Auto) 0.8 [place] # (Auto) 0.5 Eos # (Auto) 0.1 Baso # (Auto) 0.0 Procalcitonin 1.96 Preliminary micro results at discharge 09/07/20 14:55 Blood Culture - Preliminary Blood Gram Negative Rods 09/07/20 14:55 Blood Culture - Preliminary Blood Gram Negative Rods 09/08/20 07:24 Urine Culture - Preliminary Urine,Clean Catch Gram Negative Rods DS: Diagnosis - Discharge Diagnosis (1) Pyelonephritis Status: Acute (2) E coli bacteremia Status: Acute (3) E. coli pyelonephritis Status: Acute Discharge Plan - Patient Discharge Instructions ACTIVITY: Continue current activity DIET: continue same diet Patient Instructions: Urinary Tract Infection, DI for Acute Abdominal Pain - Follow up Plan Follow up with: Tunde Campa MD [Staff Physician] - 09/13/20 (please call for appointment) Disposition: Home, Self-Detention Medications: Home Medications Medication Instructions Recorded Confirmed Type No Known Home Medications 05/22/20 09/07/20 History Prescriptions/Medication Reconci
== END 2020-09-09 17:51 | disposition home or self-care (01) | DRG 690 ==
LOC: UTC 13:26 → ER 14:17 → 2ND 21:54
PROVIDERS: Nurse Practitioner Family; Admitting Provider Family Medicine; Emergency Provider Family Medicine; PCP Family Medicine; Visit Provider Family Medicine
DX: N10 Acute pyelonephritis (principal); R78.81 Bacteremia; Z87.891 Personal history of nicotine dependence; Z87.440 Personal history of urinary (tract) infections; B96.20 Unspecified Escherichia coli [E. coli] as the cause of diseases classified elsewhere
CPT/HCPCS: 74177; 80048; 80053; 81003; 81025; 83605; 84145; 85007; 85025; 87040; 87077; 87086; 87088; 87186; 87581; 87633; 87798; 96365; 96366; 96375; 99285; J1335; J2405; Q9967

== ENCOUNTER 2020-09-10 13:29 | Outpatient (CLI) | payer OTHER, SELFPAY ==
[2020-09-10 13:40] VITALS: BP 118/61; PULSE 54; RESP 18; TEMP 36.3; O2SAT 97
[2020-09-10 14:27] VITALS: BP 131/69; PULSE 58; RESP 18
== END 2020-09-10 14:27 | disposition home or self-care (01) ==
LOC: INF 13:29
PROVIDERS: PCP Family Medicine; Visit Provider Family Medicine
DX: N12 Tubulo-interstitial nephritis, not specified as acute or chronic (principal); R78.81 Bacteremia
CPT/HCPCS: 96365

== ENCOUNTER 2020-09-11 13:25 | Outpatient (CLI) | payer OTHER, SELFPAY ==
[2020-09-11 13:34] VITALS: BP 128/78; PULSE 64; RESP 18; TEMP 36.3; O2SAT 97
[2020-09-11 14:20] VITALS: BP 133/75; PULSE 68; RESP 18
== END 2020-09-11 14:20 | disposition home or self-care (01) ==
LOC: INF 13:35
PROVIDERS: Visit Provider Family Medicine
DX: N12 Tubulo-interstitial nephritis, not specified as acute or chronic (principal); R78.81 Bacteremia
CPT/HCPCS: 96365

== ENCOUNTER 2020-09-12 13:18 | Outpatient (CLI) | payer OTHER, SELFPAY ==
[2020-09-12 13:28] VITALS: BP 141/66; PULSE 61; RESP 18; TEMP 36.1; O2SAT 100
[2020-09-12 14:22] VITALS: BP 150/95; PULSE 87; RESP 18
== END 2020-09-12 14:22 | disposition home or self-care (01) ==
LOC: INF 13:21
PROVIDERS: Visit Provider Family Medicine
DX: N12 Tubulo-interstitial nephritis, not specified as acute or chronic (principal); R78.81 Bacteremia
CPT/HCPCS: 96365

== ENCOUNTER 2020-09-13 13:50 | Outpatient (CLI) | payer OTHER, SELFPAY ==
[2020-09-13 14:10] VITALS: BP 152/86; PULSE 54; RESP 18; TEMP 36.6; O2SAT 99
[2020-09-13 14:49] VITALS: BP 141/89; PULSE 65; RESP 18
== END 2020-09-13 14:49 | disposition home or self-care (01) ==
LOC: INF 14:01
PROVIDERS: Visit Provider Family Medicine
DX: N12 Tubulo-interstitial nephritis, not specified as acute or chronic (principal); R78.81 Bacteremia
CPT/HCPCS: 96365

== ENCOUNTER → 2021-01-17 14:25 | Outpatient (CLI) | payer OTHER, SELFPAY ==
[2021-01-19 09:17] LABS: FSH 22.5 mIU/mL (.); LH 19.9 mIU/mL (.); Progesterone 2.7 ng/mL (.)
== END ==
PROVIDERS: Visit Provider Obstetrics & Gynecology
DX: Z78.0 Asymptomatic menopausal state (principal)
CPT/HCPCS: 36415; 83001; 83002; 84144

== ENCOUNTER → 2021-09-05 16:21 | Outpatient (CLI) | payer OTHER, SELFPAY ==
--- NOTE | 2021-09-05 16:26 | XR_ITS ---
PROCEDURE INFORMATION: Exam: XR Right Finger(s) Exam date and time: 09/05/2021 4:28 PM Age: 50 years old Clinical indication: Injury or trauma; Other: Unknown; Fracture, traumatic injury; Closed fracture; Right; Little finger; Injury date: 09/05/21; Additional info: Injury of finger on right hand TECHNIQUE: Imaging protocol: XR Right fingers. Views: Minimum 2 views. COMPARISON: No relevant prior studies available. FINDINGS: Bones/joints: Triangular fracture fragment arising from the base and dorsal aspect of the 5th proximal phalanx. Approximate 2 mm dorsal displacement. Soft tissues: Mild diffuse soft tissue swelling. Other findings: Findings best demonstrated on lateral projection. IMPRESSION: 1. Minimally displaced fracture base and dorsal aspect of the 5th proximal phalanx. 2. Soft tissue swelling. Ligamentous injury could not be excluded.
== END ==
PROVIDERS: PCP Family Medicine; Visit Provider Family Medicine
DX: S69.91XA Unspecified injury of right wrist, hand and finger(s), initial encounter (principal)
CPT/HCPCS: 73140

== ENCOUNTER → 2022-01-27 16:50 | Outpatient (CLI) | payer OTHER, SELFPAY ==
--- NOTE | 2022-01-27 16:50 | MM_ITS ---
PROCEDURE INFORMATION: Exam: MG Bilateral Screening 3D Mammography Exam date and time: 01/27/2022 4:44 PM Age: 51 years old Clinical indication: Screening mammogram. TECHNIQUE: Imaging protocol: Bilateral Screening tomosynthesis and 2D mammography including computer-aided detection (CAD) when performed. COMPARISON: 1. MG MM DIG SCREENING MAMM BI W/CAD 01/25/2019 5:04 PM 2. MG DXLT MM Dig mamm DX unilat LT CAD 05/19/2018 2:36 PM 3. MG DXLT MM Dig mamm DX unilat LT CAD 11/19/2017 3:18 PM 4. MG SCBI MM Dig screening mamm BI w/CAD 11/02/2017 3:55 PM FINDINGS: MAMMOGRAPHY: Breast composition: The breast is heterogeneously dense, which may obscure small masses. Mass: None. Architectural distortion: No new or suspicious architectural distortion. Calcifications: No new or suspicious calcifications are present Asymmetric density: No new or suspicious asymmetric density is present Skin thickening: None. Axillary adenopathy: None. IMPRESSION: No mammographic evidence of malignancy. Recommend annual screening mammography unless otherwise clinically indicated. ASSESSMENT: BI-RADS category 1: Negative
== END ==
PROVIDERS: PCP Family Medicine; Visit Provider Obstetrics & Gynecology
DX: Z12.31 Encounter for screening mammogram for malignant neoplasm of breast (principal)
CPT/HCPCS: 77063; 77067

== ENCOUNTER → 2022-03-17 15:28 | Outpatient (CLI) | payer OTHER, SELFPAY ==
[2022-03-17 16:09] LABS: Basophils # 0.1 K/mm3 (0-0.2); Basophils % 1.3 % (0.1-2.0); Eosinophils # 0.2 K/mm3 (0.0-0.4); Eosinophils % 2.3 % (0.1-12.0); Hematocrit 42.7 % (37.0-47.0); Lymphocytes # 2.3 K/mm3 (0.7-4.5); Lymphocytes % 31.4 % (10-50); Mean Corpuscular HGB Conc 32.7 g/dL (31.8-35.4); Mean Corpuscular Hemoglobin 31.9 pg (27.0-31.2); Mean Corpuscular Volume 97.7 fl (81-99); Mean Platelet Volume 7.8 fl (7.4-10.4); Monocytes # 0.4 K/mm3 (0.1-1.0); Monocytes % 5.7 % (1.7-9.3); Neutrophils # 4.4 K/mm3 (1.8-7.8); Neutrophils % 59.4 % (37.0-80.0); Platelet Count 333 K/mm3 (142-424); Red Blood Count 4.37 M/mm3 (4.20-5.40); Red Cell Distribution Width 13.2 % (11.5-17.5); White Blood Count 7.4 K/mm3 (4.8-10.8)
[2022-03-17 16:47] LABS: Alanine Aminotransferase 16 U/L (12-78); Albumin Level 4.4 g/dl (3.5-5.0); Albumin/Globulin Ratio 1.7 (1.1-1.8); Alkaline Phosphatase 122 U/L (38-126); Anion Gap 13.6 mEq/L (5-15); Aspartate Amino Transferase 26 U/L (14-36); Blood Urea Nitrogen 13 mg/dl (7-17); Calcium 9.3 mg/dl (8.4-10.2); Carbon Dioxide 29 mmol/L (22.0-30.0); Chloride 101 mmol/L (98-107); Estimated Glomerular Filt Rate 76 ml/min (>60); GFR (African American) 92 ML/MIN (>60); Globulin 2.6 g/dL (1.3-3.2); Glucose 88 mg/dl (74-100); Potassium 4.6 mmoL/L (3.5-5.1); Sodium 139 mmol/L (136-145)
[2022-03-17 16:55] LABS: Bilirubin,Total < 0.1 mg/dl (0.2-1.3)
[2022-03-17 17:14] LABS: HCG,Quantitative < 2 mIU/ml (0-5.42)
== END ==
PROVIDERS: PCP Family Medicine; Visit Provider Obstetrics & Gynecology
DX: U07.1 COVID-19 (principal); R87.618 Other abnormal cytological findings on specimens from cervix uteri
CPT/HCPCS: 36415; 80053; 84702; 85025; C9803; U0003; U0005

== ENCOUNTER → 2022-04-12 14:26 | Outpatient (CLI) | payer OTHER, SELFPAY ==
[2022-04-12 15:08] LABS: Basophils # 0.1 K/mm3 (0-0.2); Basophils % 1.1 % (0.1-2.0); Eosinophils # 0.1 K/mm3 (0.0-0.4); Eosinophils % 1.8 % (0.1-12.0); Hematocrit 44.9 % (37.0-47.0); Hemoglobin 14.9 g/dL (12.2-16.2); Lymphocytes % 30.4 % (10-50); Mean Corpuscular HGB Conc 33.1 g/dL (31.8-35.4); Mean Corpuscular Hemoglobin 31.6 pg (27.0-31.2); Mean Corpuscular Volume 95.4 fl (81-99); Mean Platelet Volume 8.1 fl (7.4-10.4); Monocytes # 0.3 K/mm3 (0.1-1.0); Monocytes % 4.8 % (1.7-9.3); Neutrophils # 4.1 K/mm3 (1.8-7.8); Neutrophils % 61.8 % (37.0-80.0); Platelet Count 362 K/mm3 (142-424); Red Blood Count 4.71 M/mm3 (4.20-5.40); Red Cell Distribution Width 13.1 % (11.5-17.5); White Blood Count 6.7 K/mm3 (4.8-10.8)
[2022-04-12 15:12] LABS: Chloride 103 mmol/L (98-107)
[2022-04-12 15:13] LABS: Potassium 3.7 mmoL/L (3.5-5.1); Sodium 142 mmol/L (136-145)
[2022-04-12 15:15] LABS: Alanine Aminotransferase 15 U/L (12-78); Albumin Level 4.5 g/dl (3.5-5.0); Albumin/Globulin Ratio 1.7 (1.1-1.8); Alkaline Phosphatase 100 U/L (38-126); Anion Gap 16.7 mEq/L (5-15); Aspartate Amino Transferase 27 U/L (14-36); Bilirubin,Total 0.2 mg/dl (0.2-1.3); Blood Urea Nitrogen 15 mg/dl (7-17); Carbon Dioxide 26 mmol/L (22.0-30.0); Estimated Glomerular Filt Rate 67 ml/min (>60); GFR (African American) 81 ML/MIN (>60); Globulin 2.7 g/dL (1.3-3.2); Total Protein,Serum 7.2 g/dl (6.3-8.2)
[2022-04-12 15:16] LABS: Glucose 94 mg/dl (74-100)
[2022-04-12 15:43] LABS: HCG,Quantitative < 2 mIU/ml (0-5.42)
== END ==
LOC: LAB 14:27 → COVID.OUT 14:27
PROVIDERS: PCP Family Medicine; Visit Provider Obstetrics & Gynecology
DX: Z01.812 Encounter for preprocedural laboratory examination (principal); Z20.822 Contact with and (suspected) exposure to COVID-19; N87.9 Dysplasia of cervix uteri, unspecified
CPT/HCPCS: 36415; 80053; 84702; 85025; C9803; U0003; U0005

== ENCOUNTER 2022-04-14 06:01 | Day surgery (SDC) | payer OTHER, SELFPAY ==
[2022-03-17 10:47] VITALS: BMI 23.2
[2022-04-14 06:21] VITALS: BP 109/75; PULSE 75; RESP 18; TEMP 36.2; O2SAT 98
--- NOTE | 2022-04-14 07:07 | EXP.ANES.CKL ---
PFSH PFSH Medical History Cervical intraepithelial neoplasia (ANNALISA) Migraine Ovarian cyst Urinary tract infection Surgical History Hx of section Hx of tubal ligation Family History Mother Ureteral cancer Father Lung cancer Family history of myocardial infarction Family history of COPD (chronic obstructive pulmonary disease) Brother Family history of multiple sclerosis Social History Smoking Status: Former smoker how long ago did patient quit smokin year alcohol intake: never substance use type: denies use current occupational status: employed Travel in the last 8 weeks: None household members: children housing: house lives independently: Yes marital status: single education level: high school special lulu needs: No agree to transfusion: No do you feel safe at home: Yes victim of physical abuse: No victim of emotional abuse: No victim of sexual abuse: No would you like helpful sources: No [facility] Anesthesia Checklist Patient Identification Patient Identification: Arm Band and Verbal (Name & ) Structural Data Admitted From: Home Planned Operative Procedure/s: LEEP Consent for Planned Operative Procedure(s) Verified: Yes NPO Status Verified Time NPO: 00:00 Chart Verification Results Verified: CBC, BMP and HCG Additional verifications Patient : No Anesthesia Reactions: No Hx Blood Transfusions: No Blood Transfusion Reaction: No Airway Assessment C-Spine Mobility Assessed: Yes TMJ Mobility Assessed: Yes Dentition: Good Dentition Neurological Assessment Level of Consciousness: Awake Hx Seizures: No Numbness or tingling in extremities: No Anesthesia Plan Anesthesia Risk discussed: Yes Anesthesia Plan: Verified ASA Class: I Anesthesia Type: MAC
[2022-04-14 08:24] VITALS: BP 105/64; PULSE 77; RESP 16; TEMP 36.6; O2SAT 98
[2022-04-14 08:34] VITALS: BP 87/57; PULSE 78; RESP 16; O2SAT 96
[2022-04-14 08:44] VITALS: BP 128/70; PULSE 77; RESP 16; O2SAT 99
--- NOTE | 2022-04-14 08:49 | P.OP_ITS ---
Date of procedure: 04/14/22 Pre-op Diagnosis:: Cervical Intraepithelial Neoplasia 1 Post-op Diagnosis:: same Procedure performed:: Loop Electrosurgical Excisional Procedure Surgeon:: Libby Reddy MD MOTION PICTURE PROJECTIONIST APPRENTICE:: Rehan Palmer Anesthesia: MAC Estimated blood loss (mL): 5 Operative findings:: No visible lesions Operative note:: The patient was taken to the operating room and general anesthesia administered without difficulty. She was prepped & draped in lithotomy position. Metal piercing located in clitoral de la cruz was covered with telfa and tegaderm to prevent unintentional burn in that region. Coated instruments were used to prevent electrical conductivity through retractors; a coated speculum was placed in the vagina and the cervix positioned midline. The cervical cone was excised using a C-LETZ loop measuring 12mm x 10mm and excised in a single piece. Sharp endocervical curettage was performed and sent as a separate specimen. The remaining ectocervical surface was cauterized using a bovie ball as treatment for any residual dysplasia. The endocervical margins were cauterized using the bovie ball for hemostasis, with care taken to avoid cautery to the endocervical canal. The surgical site had was hemostatic, with no residual bleeding. The endocervical curette was placed in the canal to ensure patency. Monsel's solution was placed over the surgical site for additional hemostasis. All instruments were removed from the vagina. All counts were correct. Telfa & tegaderm were removed and piercing site inspected throroughly. There was no damage to tissue surrounding clitoral piercing. The patient was taken out of lithotomy position, awakened from anesthesia and taken to the PACU in stable condition. EBL: 5cc Condition: stable Disposition: PACU Specimens:: 1. Cervical cone 2. Endocervical curettings Complications:: None
[2022-04-14 08:54] VITALS: BP 95/54; PULSE 78; RESP 16; TEMP 36.6; O2SAT 100
--- NOTE | 2022-04-14 09:08 | SUR.OPER ---
piercing noted to patient vaginal area, pt was educated per MD prior to procedure on risk for burn. piercing covered with telfa and tegaderm.
[2022-04-14 09:11] VITALS: TEMP 43
== END 2022-04-14 08:54 | disposition home or self-care (01) ==
PROVIDERS: PCP Family Medicine; Visit Provider Obstetrics & Gynecology
PROC: (CPT 57522; principal; 2022-04-14 07:30)
DX: N87.9 Dysplasia of cervix uteri, unspecified (principal)
CPT/HCPCS: 57522

== ENCOUNTER → 2022-07-17 10:06 | Outpatient (CLI) | payer OTHER, SELFPAY ==
--- NOTE | 2022-07-17 10:10 | US_ITS ---
FINAL REPORT TECHNIQUE: Ultrasound images of the kidneys and bladder were obtained. CLINICAL HISTORY: LOWER ABD PAIN,VAGINAL BLEEDING FINDINGS: The right kidney measures 9.1 cm in length. It is normal in echogenicity. There is no hydronephrosis. The left kidney measures 9.8 cm in length. It is normal in echogenicity. There is no hydronephrosis. The spleen is unremarkable. IMPRESSION: No acute process Reviewed, Interpreted and Dictated by Luis Enrique St III, MD Transcribed by Nae Colmenares Authenticated and [facility]
--- NOTE | 2022-07-17 10:11 | US_ITS ---
FINAL REPORT CLINICAL HISTORY: VAGINAL BLEEDING,LOWER ABD PAIN FINDINGS: Transvaginal sonographic images of the pelvis were obtained. The uterus measures 7.0 x 3.4 x 4.4 cm. The endometrium measures 6 mm, within normal limits. The ovaries are unremarkable. No free fluid is identified. IMPRESSION: Unremarkable exam Reviewed, Interpreted and Dictated by Luis Enrique St III, MD Transcribed by Nae Colmenares Authenticated and [facility]
== END ==
PROVIDERS: PCP Family Medicine; Visit Provider Nurse Practitioner Family
DX: R10.30 Lower abdominal pain, unspecified (principal); N93.9 Abnormal uterine and vaginal bleeding, unspecified
CPT/HCPCS: 76770; 76830

== ENCOUNTER → 2022-08-03 16:08 | Outpatient (CLI) | payer OTHER, SELFPAY ==
[2022-08-05 08:16] LABS: Estradiol 63.8 pg/mL (.)
== END ==
PROVIDERS: PCP Family Medicine; Visit Provider Obstetrics & Gynecology
DX: R87.619 Unspecified abnormal cytological findings in specimens from cervix uteri (principal); N39.0 Urinary tract infection, site not specified
CPT/HCPCS: 36415; 82670; 83001

== ENCOUNTER 2022-10-11 19:34 | Emergency (ER) | payer OTHER, SELFPAY ==
[2022-10-11] VITALS (7 sets, daily range): BP systolic 111–147; BP diastolic 71–92; PULSE 65–82; RESP 16–18; TEMP 36.9; O2SAT 96–99; BMI 22.8
[2022-10-11 19:53] LABS: Apearance,Urine Clear (Clear); Bilirubin,Urine Negative (Negative); Blood, Urine Negative (Negative); Color,Urine Yellow (Yellow); Glucose,Urine (UA) Negative (Negative); Ketones,Urine Negative (Negative); PH,Urine 6.5 (5.0-8.5); Protein,Urine Negative (Negative); Specific Gravity, Urine 1.015 (1.005-1.030); UTC Leukocyte Esterase,Urine Negative (Negative); UTC Nitrate,Urine Negative (Negative); Urobilinogen,Urine 0.2 EU/dl (0.2)
--- NOTE | 2022-10-11 19:55 | EXP.UTC ---
Discharge Plan Disposition Patient Disposition: Still a Patient Condition: Fair Prescriptions Prescriptions: No Action Prempro 0.625-2.5 mg tablet 1 tab PO DAILY Qty: 28 11RF metronidazole 500 mg tablet 500 mg PO BID 7 Days Qty: 14 0RF Premarin 0.3 mg tablet 0.3 mg PO DAILY Qty: 30 11RF Rx Instructions: cyclically Referrals Follow up/Referrals: Tom Evans MD [Primary Care Provider] - See instructions Discharge ED Provider: Martina Benton [facility] HPI General Stated complaint: Stabbing pain/numbess from belly button to back Mode of Arrival: Ambulatory Source of Information: Patient Limitations: No Limitations Time Seen by Provider: 10/11/22 19:55 Description of Symptoms (Recalled from Triage Doc. by RN): Pt states that since wed she has been having a stabbing pain in lower left side that wraps around to her barun bottom. States that its numb and burning feeling at the same time . HEENT Symptoms (Recalled from RN notes): No Resp Symptoms (Recalled from RN notes): No Skin Symptoms (Recalled from RN notes): No MS Symptoms (Recalled from RN notes): No Functional Status (Recalled from RN notes): n/a History of Present Illness Provider Complaint: Patient states that she started on Wed with pain in her left back area that is stabbing like pain and area that wraps around her left side into her abdomen feels numb/burning sensation and stabbing like pain in belly button that comes and goes States that the area around her side feels odd States that it feels numb and sore at the same time but her back and naval area is different it is stabbing like pain States that earlier today the stabbing like pain in her naval area was worse Denies fever, denies known exposure to shingles and denies hx of shingles States that her symptoms is worse at night and hard to get comfortable Related Data Home Medications Medication Instructions Recorded Confirmed conj estrogen-medroxyprogesterone 1 tab PO DAILY . 10/11/22 10/11/22 0.625 mg-2.5 mg tablet (Prempro) conjugated estrogens 0.3 mg tablet 0.3 mg PO DAILY . 10/11/22 10/11/22 (Premarin) Allergies Allergy/AdvReac Type Severity Reaction Status Date / Time No Known Allergies Allergy Verified 10/11/22 19:55 Worker's Comp Is this a Worker's Comp case?: No [facility] Disclaimer: The information contained in this section may have been updated after the patient was seen, as this information can be updated by other users. Medical History Cervical intraepithelial neoplasia (ANNALISA) Migraine Ovarian cyst Urinary tract infection Surgical History H/O LEEP Hx of section Hx of tubal ligation Family History Mother Ureteral cancer Father Lung cancer Family history of myocardial infarction Family history of COPD (chronic obstructive pulmonary disease) Brother Family history of multiple sclerosis Social History Smoking Status: Former smoker how long ago did patient quit smokin year alcohol intake: never substance use type: denies use current occupational status: employed Travel in the last 8 weeks: None household members: children housing: house lives independently: Yes marital status: single education level: high school special lulu needs: No agree to transfusion: No do you feel safe at home: Yes victim of physical abuse: No victim of emotional abuse: No victim of sexual abuse: No would you like helpful sources: No ROS Obtained: Yes All systems reviewed & no additional complaints except as documented and Yes Systems reviewed as appropriate & no additional complaints except as documented Constitutional Constitutional: Reports system reviewed and no additional complaints, except as documented, R
[2022-10-11 20:09] LABS: Microscopic, Urine URINE MICROSCOPIC (MICROSCOPIC)
[2022-10-11 20:10] LABS: Appearance,Urine CLEAR (Clear); Bilirubin,Urine Negative (Negative); Blood, Urine Negative (Negative); Color,Urine YELLOW (Yellow); Glucose,Urine (UA) Negative (Negative); Ketones,Urine Negative (Negative); Leukocyte Esterase,Urine Negative (Negative); Nitrate,Urine Negative (Negative); PH,Urine 6.5 (5.0-8.5); Protein,Urine Negative (Negative); Urobilinogen,Urine 0.2 EU/dl (0.2)
[2022-10-11 20:25] LABS: Bacteria,Urine Trace /lpf; RBC,Urine Occasional #/hpf (0-3); WBC,Urine Occasional #/hpf (0-3)
[2022-10-11 20:57] LABS: Basophils # 0.1 K/mm3 (0-0.2); Basophils % 0.6 % (0.1-2.0); Eosinophils # 0.2 K/mm3 (0.0-0.4); Eosinophils % 2.5 % (0.1-12.0); Hematocrit 41.9 % (37.0-47.0); Lymphocytes # 2.8 K/mm3 (0.7-4.5); Lymphocytes % 35.2 % (10-50); Mean Corpuscular HGB Conc 33.3 g/dL (31.8-35.4); Mean Corpuscular Hemoglobin 31.4 pg (27.0-31.2); Mean Corpuscular Volume 94.2 fl (81-99); Mean Platelet Volume 9.1 fl (7.4-10.4); Monocytes # 0.4 K/mm3 (0.1-1.0); Neutrophils # 4.5 K/mm3 (1.8-7.8); Neutrophils % 56.7 % (37.0-80.0); Platelet Count 346 K/mm3 (142-424); Red Blood Count 4.45 M/mm3 (4.20-5.40); Red Cell Distribution Width 12.9 % (11.5-17.5)
[2022-10-11 21:01] LABS: Urine Pregnancy, HCG Qual. Negative (Negative)
[2022-10-11 21:01] LABS: Chloride 106 mmol/L (98-107)
[2022-10-11 21:02] LABS: Potassium 3.5 mmoL/L (3.5-5.1); Sodium 141 mmol/L (136-145)
[2022-10-11 21:04] LABS: Alanine Aminotransferase 21 U/L (12-78); Alkaline Phosphatase 92 U/L (38-126); Anion Gap 12.5 mEq/L (5-15); Aspartate Amino Transferase 34 U/L (14-36); Bilirubin,Total 0.3 mg/dl (0.2-1.3); Blood Urea Nitrogen 12 mg/dl (7-17); Carbon Dioxide 26 mmol/L (22.0-30.0); Creatinine Clearance Estimated 91 mL/min (50-200); Estimated Glomerular Filt Rate 76 ml/min (>60); GFR (African American) 92 ML/MIN (>60); Lipase 117 U/L (23-300)
[2022-10-11 21:05] LABS: Albumin Level 4.4 g/dl (3.5-5.0); Albumin/Globulin Ratio 1.5 (1.1-1.8); Calcium 9.2 mg/dl (8.4-10.2); Globulin 2.9 g/dL (1.3-3.2); Glucose 105 mg/dl (74-100); Total Protein,Serum 7.3 g/dl (6.3-8.2)
--- NOTE | 2022-10-11 21:07 | CT_ITS ---
PROCEDURE INFORMATION: Exam: CT Abdomen And Pelvis With Contrast Exam date and time: 10/11/2022 9:17 PM Age: 51 years old Clinical indication: Abdominal pain; Additional info: Abd pain, left side and back TECHNIQUE: Imaging protocol: Computed tomography of the abdomen and pelvis with contrast. Total images: 278 Radiation optimization: All CT scans at this facility use at least one of these dose optimization techniques: automated exposure control; mA and/or kV adjustment per patient size (includes targeted exams where dose is matched to clinical indication); or iterative reconstruction. Contrast material: ISOVUE; Contrast volume: 75 ml; Contrast route: IV; REPORTING DATA: Count of CT and Cardiac NM exams in prior 12 months: This patient has received 0 known CTs and 0 known cardiac nuclear medicine studies in the 12 months prior to the current study. COMPARISON: CT ABDOMEN PELVIS W CON 09/07/2020 3:04 PM FINDINGS: Lungs: Linear bibasilar atelectasis or scarring. No airspace consolidation. Densely calcified right lower lobe granuloma. Heart: Normal heart size. Liver: Decreased liver attenuation from phase of contrast versus steatosis. Normal liver size and contour. No liver mass. Gallbladder and bile ducts: Contracted gallbladder. No biliary ductal dilatation. Pancreas: Normal. No ductal dilation. Spleen: Nonenlarged spleen with calcified granuloma. Adrenal glands: Normal. No mass. Kidneys and ureters: No nephrolithiasis, hydronephrosis, or renal mass. No perinephric fluid. Stomach and bowel: Unremarkable stomach and duodenum. No ileus or bowel obstruction. Small bowel appears within normal limits. Stool in the distal ileum compatible with chronic stasis. Mild colonic stool burden. No acute colonic inflammatory change. Unremarkable rectum. Appendix: Normal appendix. Intraperitoneal space: Unremarkable. No free air. No significant fluid collection. Vasculature: Abdominal aorta is normal in caliber with mild atherosclerotic irregularity. Major abdominal vessels enhance appropriately. Numerous pelvic phleboliths. Lymph nodes: Unremarkable. No enlarged lymph nodes. Urinary bladder: Partially collapsed bladder. Reproductive: Physiologic uterus and ovaries. No adnexal mass. Bones/joints: No acute osseous abnormality. Mild degenerative changes thoracolumbar spine. No concerning bone lesions. Soft tissues: Very tiny fat containing umbilical hernia. IMPRESSION: No acute intra-abdominal or pelvic process.
--- NOTE | 2022-10-11 23:24 | PC.NURSE ---
ER at bedside speaking with pt at this time
== END 2022-10-11 23:49 | disposition home or self-care (01) ==
LOC: UTC 19:36 → ER 20:02
PROVIDERS: Nurse Practitioner; Emergency Provider Student in an Organized Health Care Education/Training Program; PCP Family Medicine
DX: R10.9 Unspecified abdominal pain (principal); Z87.891 Personal history of nicotine dependence
CPT/HCPCS: 74177; 80053; 81001; 81003; 81025; 83690; 85025; 87086; 96361; 96374; 99284; Q9967

== ENCOUNTER 2023-09-27 15:33 | Outpatient (CLI) | payer OTHER, SELFPAY ==
--- NOTE | 2023-09-27 15:33 | XR_ITS ---
FINAL REPORT TECHNIQUE: Chest PA & Lateral CLINICAL HISTORY: Right rib pain COMPARISON: None FINDINGS: 2 views of the chest were performed. The heart size is normal. The mediastinum is within normal limits. There is no acute cardiopulmonary process. There are no pleural effusions. There is no pneumothorax. The bony thorax appears intact. IMPRESSION: No acute cardiopulmonary process. Reviewed, Interpreted and Dictated by Anderson Bean MD Transcribed by Sarai Pompa Authenticated and [facility]
--- NOTE | 2023-09-27 15:33 | XR_ITS ---
FINAL REPORT CLINICAL HISTORY: Abdominal pain COMPARISON: None FINDINGS: ABDOMEN: The bowel gas pattern is nonspecific without convincing evidence of obstruction. There is a moderate amount of stool present in the colon. There is minimal hypertrophic change of the lumbar spine. IMPRESSION: Nonspecific bowel gas pattern with a moderate stool burden. Reviewed, Interpreted and Dictated by Anderson Bean MD Transcribed by Sarai Pompa Authenticated and [facility]
[2023-09-27 17:08] LABS: Microscopic, Urine URINE MICROSCOPIC (MICROSCOPIC)
[2023-09-27 17:45] LABS: Basophils # 0.1 K/mm3 (0-0.2); Basophils % 0.8 % (0.1-2.0); Eosinophils # 0.1 K/mm3 (0.0-0.4); Eosinophils % 1.9 % (0.1-12.0); Hematocrit 41.1 % (37.0-47.0); Hemoglobin 13.6 g/dL (12.2-16.2); Lymphocytes # 2.5 K/mm3 (0.7-4.5); Mean Corpuscular Hemoglobin 32.3 pg (27.0-31.2); Mean Corpuscular Volume 97.7 fl (81-99); Mean Platelet Volume 9.5 fl (7.4-10.4); Monocytes # 0.4 K/mm3 (0.1-1.0); Monocytes % 5.9 % (1.7-9.3); Neutrophils # 3.7 K/mm3 (1.8-7.8); Neutrophils % 54.4 % (37.0-80.0); Platelet Count 338 K/mm3 (142-424); White Blood Count 6.8 K/mm3 (4.8-10.8)
[2023-09-27 18:01] LABS: Hemoglobin A1C 5.7 % (4.0-6.0)
[2023-09-27 18:13] LABS: Alanine Aminotransferase 14 U/L (12-78); Albumin Level 4.6 g/dl (3.5-5.0); Alkaline Phosphatase 98 U/L (38-126); Anion Gap 14.1 mEq/L (5-15); Aspartate Amino Transferase 28 U/L (14-36); Bilirubin,Total 0.4 mg/dl (0.2-1.3); Blood Urea Nitrogen 12 mg/dl (7-17); Calcium 9.9 mg/dl (8.4-10.2); Carbon Dioxide 26 mmol/L (22.0-30.0); Chloride 104 mmol/L (98-107); Chol/HDL Ratio 2.2 (1-3.5); Cholesterol 242 mg/dl (140-200); Estimated Glomerular Filt Rate 66 ml/min (>60); GFR (African American) 80 ML/MIN (>60); Globulin 2.3 g/dL (1.3-3.2); Glucose 89 mg/dl (74-100); HDL Cholesterol 109 mg/dl (40-60); Iron 98 ug/dL (37-170); Potassium 4.1 mmoL/L (3.5-5.1); Sodium 140 mmol/L (136-145); Total Protein,Serum 6.9 g/dl (6.3-8.2); Triglycerides 144 mg/dl (30-150); VLDL Cholesterol 29 mg/dL (0-40)
[2023-09-27 18:23] LABS: Appearance,Urine CLEAR (Clear); Bilirubin,Urine Negative (Negative); Blood, Urine Negative (Negative); Color,Urine YELLOW (Yellow); Glucose,Urine (UA) Negative (Negative); Ketones,Urine Negative (Negative); Leukocyte Esterase,Urine Negative (Negative); Nitrate,Urine Negative (Negative); Protein,Urine Negative (Negative); Specific Gravity, Urine <= 1.005 (1.005-1.030); Total Iron Binding Capacity 306 ug/dL (265-497); Urobilinogen,Urine 0.2 EU/dl (0.2)
[2023-09-27 18:24] LABS: Direct LDL Cholesterol 104.68 mg/dL (100-129)
[2023-09-27 18:29] LABS: Free T4 (Free Thyroxine) 0.96 ng/dl (0.78-2.19)
[2023-09-27 18:30] LABS: 25-OH Vitamin D, Total 54.2 ng/mL (30-100)
[2023-09-27 18:43] LABS: Thyroid Stimulating Hormone 1.38 uIU/mL (0.465-4.68)
[2023-09-27 18:49] LABS: Ferritin 51.6 ng/ml (6.24-137)
[2023-09-27 19:01] LABS: Vitamin B12 241 pg/mL (239-931)
[2023-09-27 19:02] LABS: Squamous Epithelial Cell,Urine Occasional #/hpf (0-5); WBC,Urine Occasional #/hpf (0-3)
== END 2023-09-27 23:59 | disposition home or self-care (01) ==
LOC: LAB 15:33
PROVIDERS: PCP Nurse Practitioner Family; Visit Provider Nurse Practitioner Family
DX: R07.81 Pleurodynia (principal); R10.9 Unspecified abdominal pain; R53.83 Other fatigue; Z13.220 Encounter for screening for lipoid disorders; Z13.1 Encounter for screening for diabetes mellitus; E78.00 Pure hypercholesterolemia, unspecified
CPT/HCPCS: 71046; 74019; 80053; 80061; 81001; 82306; 82607; 82728; 83036; 83540; 83550; 84439; 84443; 85025; 87086

== ENCOUNTER 2023-10-05 08:11 | Outpatient (CLI) | payer OTHER, SELFPAY ==
--- NOTE | 2023-10-05 08:11 | US_ITS ---
FINAL REPORT CLINICAL HISTORY: Abdominal pain COMPARISON: None FINDINGS: Sonographic images of the abdomen were obtained. The liver has an unremarkable appearance with normal echogenicity. The gallbladder has an unremarkable appearance without evidence of gallstones. There is no evidence of biliary ductal dilatation. The common hepatic duct measures 4.5 mm, which is within normal limits. Limited images of the pancreas are unremarkable. The spleen size is normal. The right kidney measures 10 cm in length. The left kidney measures 10.7 cm in length. There is normal renal echogenicity. There is no evidence of hydronephrosis. The aorta has an unremarkable appearance. Limited images of the inferior vena cava are unremarkable. IMPRESSION: Unremarkable abdominal ultrasound with no acute abnormality identified. Reviewed, Interpreted and Dictated by Anderson Bean MD Transcribed by Sarai Pompa Authenticated and . [facility]
--- NOTE | 2023-10-05 08:11 | MM_ITS ---
PROCEDURE INFORMATION: Exam: MG Bilateral Screening 3D Mammography Exam date and time: 10/05/2023 8:29 AM Age: 52 years old Clinical indication: Screening examination TECHNIQUE: Imaging protocol: Bilateral Screening tomosynthesis and 2D mammography including computer-aided detection (CAD) when performed. COMPARISON: 1. MG MM DIG SCREENING MAMM BI W/CAD 01/27/2022 4:44 PM 2. MG MM DIG SCREENING MAMM BI W/CAD 01/25/2019 5:04 PM FINDINGS: MAMMOGRAPHY: Breast composition: There are scattered areas of fibroglandular density. Mass: None. Architectural distortion: None. Calcifications: No suspicious calcifications. Asymmetric density: None. Skin thickening: None. Axillary adenopathy: None. IMPRESSION: No mammographic evidence of malignancy. Annual screening is recommended unless otherwise clinically indicated. ASSESSMENT: BI-RADS Category 1: Negative
== END 2023-10-05 23:59 | disposition home or self-care (01) ==
LOC: RAD 08:11
PROVIDERS: PCP Nurse Practitioner Family; Visit Provider Nurse Practitioner Family
DX: Z12.31 Encounter for screening mammogram for malignant neoplasm of breast (principal); R10.9 Unspecified abdominal pain
CPT/HCPCS: 76700; 77063; 77067

== ENCOUNTER 2023-10-19 16:09 | Outpatient (CLI) | payer OTHER, SELFPAY ==
[2023-10-19 17:26] LABS: Alanine Aminotransferase 13 U/L (12-78); Albumin Level 4.6 g/dl (3.5-5.0); Alkaline Phosphatase 115 U/L (38-126); Anion Gap 14.2 mEq/L (5-15); Aspartate Amino Transferase 27 U/L (14-36); Bilirubin,Total 0.4 mg/dl (0.2-1.3); Blood Urea Nitrogen 16 mg/dl (7-17); Calcium 10.1 mg/dl (8.4-10.2); Carbon Dioxide 26 mmol/L (22.0-30.0); Chloride 103 mmol/L (98-107); Estimated Glomerular Filt Rate 66 ml/min (>60); GFR (African American) 80 ML/MIN (>60); Globulin 2.3 g/dL (1.3-3.2); Glucose 99 mg/dl (74-100); Potassium 5.2 mmoL/L (3.5-5.1); Sodium 138 mmol/L (136-145); Total Protein,Serum 6.9 g/dl (6.3-8.2)
== END 2023-10-19 23:59 | disposition home or self-care (01) ==
LOC: LAB 16:10
PROVIDERS: PCP Nurse Practitioner Family; Visit Provider Obstetrics & Gynecology
DX: N95.1 Menopausal and female climacteric states (principal)
CPT/HCPCS: 36415; 80053

== ENCOUNTER 2023-11-19 14:17 | Outpatient (CLI) | payer OTHER, SELFPAY ==
[2023-11-19 16:07] LABS: Alanine Aminotransferase 17 U/L (12-78); Albumin Level 4.5 g/dl (3.5-5.0); Albumin/Globulin Ratio 1.9 (1.1-1.8); Alkaline Phosphatase 104 U/L (38-126); Anion Gap 13.4 mEq/L (5-15); Aspartate Amino Transferase 29 U/L (14-36); Bilirubin,Total 0.3 mg/dl (0.2-1.3); Blood Urea Nitrogen 15 mg/dl (7-17); Calcium 9.9 mg/dl (8.4-10.2); Carbon Dioxide 29 mmol/L (22.0-30.0); Chloride 101 mmol/L (98-107); Estimated Glomerular Filt Rate 66 ml/min (>60); GFR (African American) 80 ML/MIN (>60); Globulin 2.4 g/dL (1.3-3.2); Glucose 98 mg/dl (74-100); Potassium 4.4 mmoL/L (3.5-5.1); Sodium 139 mmol/L (136-145); Total Protein,Serum 6.9 g/dl (6.3-8.2)
== END 2023-11-19 23:59 | disposition home or self-care (01) ==
PROVIDERS: PCP Nurse Practitioner Family; Visit Provider Obstetrics & Gynecology
DX: N95.1 Menopausal and female climacteric states (principal)
CPT/HCPCS: 36415; 80053

== ENCOUNTER 2024-08-16 16:00 | Outpatient (CLI) | payer OTHER, SELFPAY | END 2024-08-16 23:59 | disposition home or self-care (01) | LOC: LAB.DROPOF 08-17 10:36 | PROVIDERS: PCP Nurse Practitioner Family; Visit Provider Nurse Practitioner Family | DX: N39.0 Urinary tract infection, site not specified (principal) | CPT/HCPCS: 87086; 87088; 87186 ==

== ENCOUNTER 2024-08-30 15:01 | Outpatient (CLI) | payer OTHER, SELFPAY ==
[2024-08-30 13:39] LABS: Alanine Aminotransferase 18 U/L (12-78); Albumin Level 4.4 g/dl (3.5-5.0); Albumin/Globulin Ratio 2.1 (1.1-1.8); Alkaline Phosphatase 90 U/L (38-126); Anion Gap 11.4 mEq/L (5-15); Aspartate Amino Transferase 30 U/L (14-36); Bilirubin,Total 0.4 mg/dl (0.2-1.3); Blood Urea Nitrogen 15 mg/dl (7-17); Calcium 10.4 mg/dl (8.4-10.2); Carbon Dioxide 25 mmol/L (22.0-30.0); Chloride 105 mmol/L (98-107); Estimated Glomerular Filt Rate 66 ml/min (>60); GFR (African American) 80 ML/MIN (>60); Globulin 2.1 g/dL (1.3-3.2); Glucose 106 mg/dl (74-100); Potassium 4.4 mmoL/L (3.5-5.1); Sodium 137 mmol/L (136-145); Total Protein,Serum 6.5 g/dl (6.3-8.2)
[2024-08-30 14:08] LABS: Basophils % 0.4 % (0.1-2.0); Eosinophils % 0.4 % (0.1-12.0); Hemoglobin 13.3 g/dL (12.2-16.2); Lymphocytes % 22.5 % (10-50); Mean Corpuscular HGB Conc 34.1 g/dL (31.8-35.4); Mean Corpuscular Hemoglobin 31.7 pg (27.0-31.2); Mean Corpuscular Volume 92.9 fl (81-99); Mean Platelet Volume 10.6 fl (7.4-10.4); Monocytes # 0.2 K/mm3 (0.1-1.0); Neutrophils # 3.3 K/mm3 (1.8-7.8); Neutrophils % 72.5 % (37.0-80.0); Platelet Count 258 K/mm3 (142-424); Red Cell Distribution Width 12.4 % (11.5-17.5); White Blood Count 4.5 K/mm3 (4.8-10.8)
--- NOTE | 2024-08-30 15:05 | XR_ITS ---
FINAL REPORT CLINICAL HISTORY: r/o renal stones, Rt sided pain COMPARISON: 09/27/2023 FINDINGS: A single view of the abdomen was obtained. There is a normal bowel gas pattern. No radiopaque renal stones identified. Pelvic calcifications are stable and compatible with phleboliths. IMPRESSION: No radiopaque upper urinary tract stones. Reviewed, Interpreted and Dictated by Cristobal Hanna MD Transcribed by Shilpa Elliott Authenticated and [facility]
== END 2024-08-30 23:59 | disposition home or self-care (01) ==
LOC: RAD 15:01
PROVIDERS: PCP Nurse Practitioner Family; Visit Provider Nurse Practitioner Family
DX: R10.11 Right upper quadrant pain (principal)
CPT/HCPCS: 74018; 80053; 85025

== ENCOUNTER 2024-09-06 14:13 | Outpatient (CLI) | payer OTHER, SELFPAY | END 2024-09-06 23:59 | disposition home or self-care (01) | LOC: LAB.DROPOF 09-07 10:50 | PROVIDERS: PCP Nurse Practitioner Family; Visit Provider Nurse Practitioner Family | DX: R10.11 Right upper quadrant pain (principal); R10.9 Unspecified abdominal pain | CPT/HCPCS: 87086 ==

== ENCOUNTER 2024-09-08 06:37 | Outpatient (CLI) | payer OTHER, SELFPAY ==
[2024-09-08] MEDS: SODIUM CHLORIDE 0.9% 10ML SYR (RAD ONLY) 10 ML IV (07:00)
--- NOTE | 2024-09-08 07:00 | NM_ITS ---
FINAL REPORT CLINICAL HISTORY: RUQ pain, COMPARISON: None FINDINGS: Sequential anterior projection images of the abdomen were obtained after the intravenous injection of 8.2 mCi technetium 99m Choletec. There is normal uptake of radiotracer by the liver. The bile ducts are visualized by 5 minutes. Gallbladder activity is seen by 10 minutes. Bowel activity is noted after CCK administration. After 1 hour, 1.4 ?g of CCK was injected intravenously for calculation of gallbladder ejection fraction. The gallbladder ejection fraction is 93%, which is within normal limits. IMPRESSION: No evidence of cystic duct or bile duct obstruction. Normal gallbladder ejection fraction of 93%. Reviewed, Interpreted and Dictated by Anderson Bean MD Transcribed by Sarai Pompa Authenticated and . [facility]
[2024-09-08] MEDS: SINCALIDE 1.4 MCG in 0.9 % SODIUM CHLORIDE 50 ML 100 MCG IV (08:00)
[2024-09-08] MEDS: ISOTOPE CHOLETECH;1 DOSE (UP TO 15 MCI) IV (09:16)
== END 2024-09-08 23:59 | disposition home or self-care (01) ==
PROVIDERS: PCP Nurse Practitioner Family; Visit Provider Nurse Practitioner Family
DX: R10.11 Right upper quadrant pain (principal)
CPT/HCPCS: 78227; A9537; J2805

== ENCOUNTER 2025-01-17 12:12 | Day surgery (SDC) | payer OTHER, SELFPAY ==
[2025-01-10 15:17] VITALS: BMI 29.2
--- NOTE | 2025-01-17 10:58 | P.HP_ITS ---
History of Present Illness *Admission Date: 01/17/25 *History of present illness: Mrs. Blanchard is a 54-year-old female who is here for diagnostic colonoscopy. She has been struggling with abdominal pain and CAT scan showed stool in the distal ileum with stool retention. She has a lot of bloating and right upper quadrant pain. The examination is deemed medically necessary for diagnostic colonoscopy. The patient has been seen, interviewed and examined prior to the procedure by both myself and the anesthesia provider. [facility] Disclaimer: The information contained in this section may have been updated after the patient was seen, as this information can be updated by other users. Medical History UTI (urinary tract infection) LGSIL on Pap smear of cervix E. coli pyelonephritis E coli bacteremia Pyelonephritis Bulky or enlarged uterus Ovarian cyst ASCUS with positive high risk HPV Vulvar lesion Unexplained endometrial cells on cervical cytology Dysmenorrhea Irregular menses Recurrent UTI Shingles Cervical intraepithelial neoplasia (ANNALISA) Ovarian cyst Urinary tract infection Migraine Surgical History H/O LEEP Hx of section Hx of tubal ligation Family History Mother Ureteral cancer Father Lung cancer Family history of myocardial infarction Family history of COPD (chronic obstructive pulmonary disease) Brother Family history of multiple sclerosis Social History (Updated 01/17/25 @ 13:33 by Angelique Grimm RN) Smoking Status: Light tobacco smoker how long ago did patient quit smokin year alcohol intake: never substance use type: denies use current occupational status: employed Travel in the last 8 weeks?: None housing: house lives independently: Yes marital status: single education level: high school caffeine: Yes special lulu needs: No agree to transfusion: No do you feel safe at home: Yes victim of physical abuse: No victim of emotional abuse: No victim of sexual abuse: No would you like helpful sources: No Have you lived/traveled outside [place] in past 30 days?: No Contact w/someone who lives/traveled outside [place] past 30 days?: No Exposure to someone with infectious disease in past 14 days?: No Do you have a fever (greater than 100.4 F or 38 C)?: No Have you tested positive for COVID-19?: No Exposed to someone with COVID-19 in past 14 days?: No Do you have a sore throat?: No Do you have a cough?: No Do you have any weakness?: No Are you experiencing any nausea/vomitting?: Yes Do you have any diarrhea?: No Are you experiencing any unusual bleeding?: No Do you have any muscle aches/pain?: No Do you have any abdominal pain?: No Are you experiencing loss of taste or smell?: No Other Medical History Have you received the Flu Vaccine for this season: Yes Have you received the Pneumonia Vaccine: No Review of Systems Review of Systems Review of systems (narrative): Negative *Cardiovascular Comments: Negative *Gastrointestinal Comments: Negative *Genitourinary Comments: Negative *Musculoskeletal Comments: Negative *Neurologic Comments: Negative Meds Home Medications and Allergies Home Medications ?Medication ?Instructions ?Recorded ?Confirmed ?Type dicyclomine 10 mg capsule 10 mg PO QID PRN abdominal p ain 10/25/24 01/17/25 Rx #60 caps sodium,potassium,mag sulfates 17.5 See Rx Instructions PO .COMPLEX 01/04/25 01/17/25 Rx gram-3.13 gram-1.6 gram oral soln #354 mL (Suprep Bowel Prep Kit) New Prescriptions to Start Prescriptions: Allergies Allergy/AdvReac Type Severity Reaction Status Date / Time No Known Allergies Allergy Verified 01/17/25 13:35 Exam *Routine HEENT Exam Head: Present normocephalic Eye: Present EOMI and PERRL ENT: Present mucous membranes moist *Routine Neck Exam Neck: Present supple *Routine Respiratory Exam Respiratory: Present CTA bilaterally *Routine Cardiovascular Exam Cardiovascular: Present RRR *Routine Abdominal Exam Abdominal: Present soft and normoactive bowel sounds; Absent tenderness *Routine Rectal Exam Rectal:: deferred *Routine Genitalia Exam Genitalia:: deferred *Routine Extremities Exam Extremities: Absent cyanosis, clubbing or edema *Routine Skin Exam Skin: Present warm; Absent rash *Routine Neurological Exam Neurological: Present alert and oriented X3 Assessment and Plan *Assessment and plan (1) RUQ pain: Status: Acute Category: Medical Code(s): R10.11 - Right upper quadrant pain (2) Bloating: Status: Acute Category: Medical Code(s): R14.0 - Abdominal distension (gaseous) (3) Chronic abdominal pain: Status: Acute Category: Medical Code(s): R10.9 - Unspecified abdominal pain; G89.29 - Other chronic pain (4) Incomplete defecation: Status: Acute Category: Medical Code(s): R15.0 - Incomplete defecation Plan A/P: 1. Right upper quadrant abdominal pain, bloating and incomplete defecation is the preprocedural diagnosis. The patient will be anesthetized/sedated using MAC sedation. The patient has been seen and examined. Cardiac and lung assessment prior to the examination is stable. Proceed with planned diagnostic colonoscopy.
[2025-01-17 13:26] VITALS: BP 114/77; PULSE 67; RESP 18; TEMP 36.4; O2SAT 98; BMI 25.0
[2025-01-17] MEDS: LACTATED RINGERS 1000ML 1,000 ML 50 ML IV (13:35)
--- NOTE | 2025-01-17 13:58 | EXP.ANES.CKL ---
[facility] Disclaimer: The information contained in this section may have been updated after the patient was seen, as this information can be updated by other users. Medical History UTI (urinary tract infection) LGSIL on Pap smear of cervix E. coli pyelonephritis E coli bacteremia Pyelonephritis Bulky or enlarged uterus Ovarian cyst ASCUS with positive high risk HPV Vulvar lesion Unexplained endometrial cells on cervical cytology Dysmenorrhea Irregular menses Recurrent UTI Shingles Cervical intraepithelial neoplasia (ANNALISA) Ovarian cyst Urinary tract infection Migraine Surgical History H/O LEEP Hx of section Hx of tubal ligation Family History Mother Ureteral cancer Father Lung cancer Family history of myocardial infarction Family history of COPD (chronic obstructive pulmonary disease) Brother Family history of multiple sclerosis Social History (Updated 01/17/25 @ 13:33 by Angelique Grimm RN) Smoking Status: Light tobacco smoker how long ago did patient quit smokin year alcohol intake: never substance use type: denies use current occupational status: employed Travel in the last 8 weeks?: None housing: house lives independently: Yes marital status: single education level: high school caffeine: Yes special lulu needs: No agree to transfusion: No do you feel safe at home: Yes victim of physical abuse: No victim of emotional abuse: No victim of sexual abuse: No would you like helpful sources: No Have you lived/traveled outside [place] in past 30 days?: No Contact w/someone who lives/traveled outside [place] past 30 days?: No Exposure to someone with infectious disease in past 14 days?: No Do you have a fever (greater than 100.4 F or 38 C)?: No Have you tested positive for COVID-19?: No Exposed to someone with COVID-19 in past 14 days?: No Do you have a sore throat?: No Do you have a cough?: No Do you have any weakness?: No Are you experiencing any nausea/vomitting?: Yes Do you have any diarrhea?: No Are you experiencing any unusual bleeding?: No Do you have any muscle aches/pain?: No Do you have any abdominal pain?: No Are you experiencing loss of taste or smell?: No [facility] Anesthesia Checklist Patient Identification Patient Identification: Arm Band Structural Data Admitted From: Home Planned Operative Procedure/s: Colonoscopy Consent for Planned Operative Procedure(s) Verified: Yes Verified Documents: Surgical Consent and History and Physical NPO Status Verified Time NPO: 09:30 Additional verifications Anesthesia Reactions: No Hx Blood Transfusions: No Blood Transfusion Reaction: No Airway Assessment Mallampati Score:: Class II C-Spine Mobility Assessed: Yes TMJ Mobility Assessed: Yes Dentition: Good Dentition Neurological Assessment Level of Consciousness: Awake, Alert and Appropriate Anesthesia Plan Anesthesia Risk discussed: Yes Anesthesia Plan: Verified ASA Class: II Anesthesia Type: MAC
--- NOTE | 2025-01-17 14:31 | HMH.PROCNOTE ---
[facility] Procedure Note Date: 01/17/25 Time: 14:49 Procedure Note:: Colonoscopy Procedure Report: Colonoscopy with cold snare polypectomy Endoscopist: Sean Camarena II, MD Referring physician: VIKY Ribeiro Date of Procedure: January 17, 2025 Equipment: Olympus [id number] adult colonoscope Sedation: MAC sedation Indication: Mrs. Blanchard is a 54-year-old female who is here for diagnostic colonoscopy. She reports chronic persistent right upper quadrant abdominal pain that she has had for more than a year. She had a normal gallbladder ultrasound. Her HIDA scan showed a normal gallbladder ejection fraction (93%). Her KUB was unremarkable. Her CAT scan showed stool in the right colon as well as the distal ileum with increased fecal burden. She does have a bowel movement daily but does report incomplete defecation. She does get moderate bloating, belching and gassiness. She reports no rectal bleeding, weight loss or family history of colon cancer. Her nephew has Crohn's disease. This is her first colonoscopy. Procedure: Prior to the procedure, a history and physical exam was performed, and patient's medications and allergies were reviewed. The risks, benefits and alternatives of the sedation and procedure were discussed with the patient. All questions were answered and informed consent was obtained. The patient was brought to the procedure room. Patient identification and proposed procedure were verified by the physician and the nurse. The patient was placed in a left lateral decubitus position and the scope was passed under direct vision. Throughout the procedure, the patient's blood pressure, pulse, and oxygen saturations were monitored continuously. The colonoscopy was accomplished without difficulty. The patient tolerated the procedure well. Findings: On digital rectal examination there was normal rectal tone. There were no external hemorrhoids. The colonoscope was introduced through the anal canal to the rectum and advanced to the cecum. The ileocecal valve and appendiceal orifice were identified. The scope was advanced a short distance into the ileum which appeared grossly normal. The scope was then withdrawn into the colon. The cecum, ascending, transverse and descending colon were grossly normal. There was a 4 mm polyp in the sigmoid colon and a 9 mm polyp in the rectum both of which were removed via cold snare polypectomy. There was some angulation at the hepatic flexure suggestive of hepatic flexure syndrome. There were no other mucosal abnormalities identified. Upon retroflexion within the rectum there were grade 1-2 internal hemorrhoids. The preparation was excellent throughout with Atlantic Preparation Score of 9. The cecal time was 12 minutes. Impression: 1. Rectal polyp (9 mm) 2. Sigmoid polyp (4 mm) 3. 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 Hepatic flexure syndrome is a term used to describe bloating, muscle spasms of the colon and upper abdominal pain on the right side and is thought to be caused by trapped gas and stool at the hepatic flexure/curvature of the colon which is in the right upper colon. We will discuss treatment options. I will follow-up the polyp histology and recommend repeat surveillance colonoscopy again in 5 to 7 years based upon the pathology.
[2025-01-17 14:51] VITALS: BP 92/61; PULSE 67; RESP 18; TEMP 36.3; O2SAT 18
[2025-01-17 15:01] VITALS: BP 114/64; PULSE 68; RESP 17; O2SAT 99
[2025-01-17 15:11] VITALS: BP 97/64; PULSE 67; RESP 17; O2SAT 98
[2025-01-17 15:21] VITALS: BP 109/80; PULSE 71; RESP 17; O2SAT 100
== END 2025-01-17 15:50 | disposition home or self-care (01) ==
PROVIDERS: PCP Nurse Practitioner Family; Visit Provider Internal Medicine Gastroenterology
PROC: 0DJD8ZZ Inspection of Lower Intestinal Tract, Via Natural or Artificial Opening Endoscopic (ICD-10-PCS; CPT 45378; principal; 2025-01-17 14:00)
DX: D12.5 Benign neoplasm of sigmoid colon (principal); D12.8 Benign neoplasm of rectum; K64.0 First degree hemorrhoids; K64.1 Second degree hemorrhoids
CPT/HCPCS: 45385; J2003; J2704; J7120

== ENCOUNTER 2025-03-02 14:09 | Outpatient (CLI) | payer OTHER, SELFPAY | END 2025-03-02 23:59 | disposition home or self-care (01) | LOC: LAB 14:10 | PROVIDERS: PCP Nurse Practitioner Family; Visit Provider Nurse Practitioner Family | DX: R14.0 Abdominal distension (gaseous) (principal) | CPT/HCPCS: 82653 ==

== ENCOUNTER 2025-04-01 10:12 | Outpatient (CLI) | payer OTHER, SELFPAY | END 2025-04-01 23:59 | disposition home or self-care (01) | LOC: LAB.DROPOF 04-02 14:00 | PROVIDERS: PCP Student in an Organized Health Care Education/Training Program; Visit Provider Student in an Organized Health Care Education/Training Program | DX: N39.0 Urinary tract infection, site not specified (principal) | CPT/HCPCS: 87086; 87088 ==